=== PATIENT | female | born 1990 | race Two or more races ===

== ENCOUNTER 2024-12-27 08:34 | Outpatient (AMB) | payer BC, SELFPAY ==
--- NOTE | 2024-12-27 09:04 | AMB.GYNCLNOT ---
Vital Signs 12/27/24 09:16 Height 1.63 m Height Method Stated Weight 52.277 kg Weight Measurement Method Standing Scale BMI 19.8 BP 112/76 Blood Pressure Source Automatic Cuff Blood Pressure Location Left Upper Arm Position Sitting Respiration 18 Pulse 81 Pulse Source Monitor Temp 97.6 F Temp Source Temporal Artery Scan Pulse Oximetry (%) 99 Oxygen Delivery Method Room Air Allergies/Home Meds Allergies & Medications Allergies No Known Allergies Allergy (Verified 12/27/24 09:18) Medication Reconciliation No Known Home Medications 12/27/24 [History Confirmed 12/27/24] Intake Visit Data Collection New Patient or Established: New Patient not seen in past 3 years at [facility] (considered New) Reason for Visit:: New OB visit Do You Feel Safe at Home: Yes Authorities Contacted: N/A PCP or OBGYN visit in last 3 months: Yes Last menstrual period: 10/19/24 Pain Present Currently: No Smoking Status Smoking Status: Never smoker 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 1. Little interest or pleasure in doing things: not at all 2. 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 Tobacco History Smoking Status: Never smoker Alcohol History Alcohol Intake: Never Domestic Abuse History Do You Feel Safe at Home: Yes History of Present Illness HPI Narrative The patient is a 34-year-old G1, P0 presents for a new OB appointment. LMP was 10/19/2024. This gives an EDC of 07/26/2025. She states she had [address] Cooper at [facility] and did not like her experience. She is here for her obstetrical care. She used to see Dr. Charles Caruso in [place] for her gynecological care. Patient reports breast tenderness mild nausea no vomiting. No bleeding. This was an unexpected but they are very happy about it Review of Systems Review of Systems Narrative Review of Systems: Mild nausea. Breast tenderness. Patient is tired. Exam General General Appearance: alert, in no apparent distress, comfortable, cooperative, healthy appearing, well developed and well groomed Neck Neck exam: Present normal inspection, full ROM and trachea midline Chest Chest inspection: Present normal inspection and symmetric chest wall rise Resp Respiratory exam: Present normal lung sounds bilaterally Card Cardiovascular exam: Present regular rate, normal rhythm and normal heart sounds Abdominal Abdominal exam: Present soft and normal bowel sounds External exam: Present normal external exam Extremities Extremities exam: Present normal inspection and full ROM Psych Psychiatric exam: Present normal affect and normal mood Skin Skin exam: Present warm, dry, intact and normal color Office Procedures OB Clinic LOC & Office Proc's Nursing/Assessment Patient Status: Initial/New Patient OB Clinic Nursing Assessment: BP Monitoring, Medication Reconciliation and Update PMH in EMR OB Clinic Coordination of Care: Complex Care and Chronic Disease 1-5, Education Complex Pt/Fam, Consent,records obtained, informed consent, Results/Orders obtained and Staff clarify orders Special Needs: Heart tones New Patient Charge New Patient Point Assignment: [id number] New Patient Point Charge: COMMUNITY HEALTH PROGRAM COORDINATOR Level 4 ([id number]) Bedside Ultrasounds US Transvaginal at bedside: Yes Urine HCG Ambulatory Location Ambulatory Dept Location: OB Clinic Urine HCG HCG: Yes Results Urine HCG Urine HCG Positive Last Edit by Ronan Leonard MA on 12/27/24 09:23 Assessment & Plan Diagnosis / Problem List (1) Amenorrhea: (2) : Status: Acute Qualifiers: Weeks of gestation: 10 weeks Qualified Code(s): Z3A.10 - 10 weeks gestation of Assessment and Plan: labs ordered. Recommend vitamins. (3) Primiparous in first trimester: Status: Acute OB Ultrasound Indication Indication: Size, dates, viability OB Ultrasound Ultrasound technique: transvaginal Gestational sac assessment: Presence, location, size, shape: Live intrauterine with crown-rump length of 3.32 cm corresponding to 10 weeks 0 days and an EDC of 07/25/2025
[2024-12-27 09:16] VITALS: BP 112/76; PULSE 81; RESP 18; TEMP 36.4; O2SAT 99; BMI 19.8
== END 2024-12-27 10:23 | disposition home or self-care (01) ==
LOC: HODSOBC 08:34
PROVIDERS: Supervising Provider Obstetrics & Gynecology; Visit Provider Obstetrics & Gynecology
DX: Z34.01 Encounter for supervision of normal first pregnancy, first trimester (principal); Z3A.10 10 weeks gestation of pregnancy
CPT/HCPCS: 76817; 99204; G0463

== ENCOUNTER 2025-01-29 08:48 | Outpatient (AMB) | payer OTHER, MEDICAID, SELFPAY ==
[2025-01-29 08:59] VITALS: BP 114/78; PULSE 102; RESP 17; TEMP 36.7; O2SAT 97; BMI 20.5
--- NOTE | 2025-01-29 08:59 | OBCLNT_ITS ---
Vital Signs 01/29/25 08:59 Height 1.63 m Height Method Stated Weight 54.431 kg Weight Measurement Method Standing Scale BMI 20.5 BP 114/78 Blood Pressure Source Automatic Cuff Blood Pressure Location Right Upper Arm Position Sitting Respiration 17 Pulse 102 H Pulse Source Monitor Temp 98.0 F Temp Source Temporal Artery Scan Pulse Oximetry (%) 97 Oxygen Delivery Method Room Air Allergies/Home Meds Allergies & Medications Allergies No Known Allergies Allergy (Verified 01/29/25 09:00) Medication Reconciliation vits no.126-ferrous fum 28 mg iron-folic acid 800 mcg tablet (Classic ) 1 tab PO .QD #90 tabs 12/29/24 [Rx Confirmed 01/29/25] Intake Visit Data Collection New Patient or Established: Established Patient (seen at [facility] within 3 years) Reason for Visit:: OBC Seen by Clinical Staff ONLY (RN/MA): No Materials Management Manager Required: No Do You Feel Safe at Home: Yes Authorities Contacted: N/A PCP or OBGYN visit in last 3 months: Yes Date of Last PCP or OBGYN visit: 12/27/24 Hx Now: Yes Pain Present Currently: No Pain Scale Used: Mccoy-Burgos/Numerical Pain scale:: 0 Smoking Status Smoking Status: Never smoker Questionnaires Covid-19 Vaccine Questionnaire Has patient been vacinated for Covid-19 Have you been vacinated for Covid-19: No PHQ-9 PHQ-2 Over the last 2 weeks, how often have you been bothered by any of the following problems? 1. 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 Tobacco History Smoking Status: Never smoker Alcohol History Alcohol Intake: Never Domestic Abuse History Do You Feel Safe at Home: Yes CLIENT RENEWAL SPECIALIST: Past Medical History Additional Operations/Hospitalizations (year & reason): LEEP 2019 Dr. 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 History of Present Illness HPI Narrative Patient is a 34-year-old G1, P0 with an LMP of 10/19/2024 and EDC of 07/26/2025 who presents for care. She started her care at [facility]. She states she had her labs done at [facility]. Care OB Visit Log OB Flowsheet Initial Weight: Not Recorded Date -?-?-?-?-?-?-?-?-?-?-?-?- EGA Weight BP Alb Glu CTX Pres Fundal ht FHR Mov Dilation Station Effacement Hx Notes Visit Note 01/29/25 -?-?-?-?-?-?-?-?--?-?-?-?- 14w 5d 54.431 kg 114/78 15 140 No vaginal bleeding no cramping. Patient still nauseous willing to try medication. JANY Calculator Estimated Delivery Date Method Current WG Current Estimate 07/25/25 Ultrasound #1 14w 5d Other Estimates 07/26/25 LMP (Certain) 14w 4d Expected Delivery Route/Plan G1, P0 Specific Issue/Plans LMP 10/19/2024 EDC 07/26/2025 Notes Visit Date: 01/29/25 Last Updated by: Abbey Wu (OB Clinic)MD No labs to review. Patient states NIPT is not covered. Office Procedures OB Clinic LOC & Office Proc's Nursing/Assessment Patient Status: Established Patient OB Clinic Nursing Assessment: Medication Reconciliation, Update PMH in EMR and Vital Signs OB Clinic Coordination of Care: Complex Care and Chronic Disease 1-5, Consent,records obtained, informed consent, Education Simp Pt/Fam and Staff clarify orders Special Needs: Heart tones Established Patient Charge Established Patient Point Assignment: 115 Established Patient Point Charge: EP Level 3 (80-115) Assessment & Plan Diagnosis / Problem List (1) : Status: Acute Qualifiers: Weeks of gestation: 15 weeks Qualified Code(s): Z3A.15 - 15 weeks gestation of Assessment and Plan: Follow-up on labs at [facility]. Order Goyo.
== END 2025-01-29 09:13 | disposition home or self-care (01) ==
LOC: HODSOBC 08:48
PROVIDERS: Supervising Provider Obstetrics & Gynecology; Visit Provider Obstetrics & Gynecology
DX: Z34.02 Encounter for supervision of normal first pregnancy, second trimester (principal); Z3A.14 14 weeks gestation of pregnancy
CPT/HCPCS: 99213; G0463

== ENCOUNTER 2025-03-02 14:45 | Outpatient (AMB) | payer OTHER, SELFPAY ==
--- NOTE | 2025-03-02 14:56 | OBCLNT_ITS ---
Vital Signs 03/02/25 14:57 Height 1.63 m Height Method Stated Weight 56.869 kg Weight Measurement Method Standing Scale BMI 21.4 BP 106/71 Blood Pressure Source Automatic Cuff Blood Pressure Location Right Upper Arm Position Sitting Respiration 17 Pulse 88 Pulse Source Monitor Temp 98.5 F Temp Source Temporal Artery Scan Pulse Oximetry (%) 97 Oxygen Delivery Method Room Air Allergies/Home Meds Allergies & Medications Allergies shrimp Allergy (Severe, Verified 03/02/25 16:18) Anaphylaxis Medication Reconciliation vits no.126-ferrous fum 28 mg iron-folic acid 800 mcg tablet (Classic ) 1 tab PO .QD #90 tabs 12/29/24 [Rx Confirmed 03/02/25] doxylamine 10 mg-pyridoxine (vit B6) 10 mg tablet,delayed release (Diclegis) 1 tab PO BID #30 tabs 01/29/25 [Rx Confirmed 03/02/25] ondansetron 4 mg disintegrating tablet 4 mg PO Q6H PRN nausea and vomiting #60 tabs 01/29/25 [Rx Confirmed 03/02/25] Intake Visit Data Collection New Patient or Established: Established Patient (seen at [facility] within 3 years) Reason for Visit:: OBC Seen by Clinical Staff ONLY (RN/MA): No Senior Mobile Web Developer Required: No Do You Feel Safe at Home: Yes Authorities Contacted: N/A PCP or OBGYN visit in last 3 months: Yes Date of Last PCP or OBGYN visit: 01/29/25 Hx Now: Yes Are you currently on any form of Control: No Pain Present Currently: Yes Pain Scale Used: Mccoy-Burgos/Numerical Pain scale:: 0 Smoking Status Smoking Status: Never smoker Questionnaires Covid-19 Vaccine Questionnaire Has patient been vacinated for Covid-19 Have you been vacinated for Covid-19: No PHQ-9 PHQ-2 Over the last 2 weeks, how often have you been bothered by any of the following problems? 1. Little interest or pleasure in doing things: not at all 2. Feeling down, depressed, or hopeless: not at all Total score: 0 PHQ-9 3. Trouble falling or staying asleep, or sleeping too much: Not at all 4. Feeling tired or having little energy: Not at all 5. Poor appetite or overeating: Not at all 6. Feeling bad about yourself - or that you are a failure or have let yourself or your family down: Not at all 7. Trouble concentrating on things, such as reading the newspaper or watching television: Not at all 8. Moving or speaking so slowly that other people could have noticed? - Or the opposite - being so fidgety or restless that you have been moving around a lot more than usual: not at all 9. Thoughts that you would be better off or of hurting yourself in some way: Not at all Total score: 0 If you checked off any problems, how difficult have these problems made it for you to do your work, take care of things at home, or get along with other people?: not difficult at all Source: Developed by Drs. Narendra Rogers, Kate Chacon, Roge Suarez and colleagues, with an educational janette from [employer]. 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 Tobacco History Smoking Status: Never smoker Second Hand Smoke Exposure: No Alcohol History Alcohol Intake: Never Domestic Abuse History Do You Feel Safe at Home: Yes History of Present Illness HPI Narrative 34 y/o who presents for PN care. One visit at [facility] Care OB Visit Log OB Flowsheet Initial Weight: Not Recorded Date -?-?-?-?-?-?-?-?-?-?-?-?- EGA Weight BP Alb Glu CTX Pres Fundal ht FHR Mov Dilation Station Effacement Hx Notes Visit Note 01/29/25 -?-?-?-?-?-?-?-?-?-?-?-?- 14w 5d 54.431 kg 114/78 15 140 No vaginal bleeding no cramping. Patient still nauseous willing to try medication. 03/02/25 -?-?-?-?-?-?-?-?-?-?-?-?- 19w 2d 56.869 kg 106/71 20 135 active No VB or hog scraper mping. NIPT WNL. Order SS. No labs back JANY Calculator Estimated Delivery Date Method Current WG Current Estimate 07/25/25 Ultrasound #1 21w 6d Other Estimates 07/26/25 LMP (Certain) 21w 5d Expected Delivery Route/Plan G1, P0 Specific Issue/Plans LMP 10/19/2024 EDC 07/26/2025 Notes Visit Date: 03/02/25 Last Updated by: Abbey Wu (OB Clinic)MD Pt doing well. Need all PNC labs on chart as none available. NIPT 46 XX Visit Date: 01/29/25 Last Updated by: Abbey Wu (OB Clinic)MD No labs to review. Patient states NIPT is not covered. Office Procedures OB Clinic LOC & Office Proc's Nursing/Assessment Patient Status: Established Patient OB Clinic Nursing Assessment: Medication Reconciliation, Update PMH in EMR and Vital Signs OB Clinic Coordination of Care: Complex Care and Chronic Disease 1-5, Consent,records obtained, informed consent, Education Simp Pt/Fam and Staff clarify orders Special Needs: Heart tones Established Patient Charge Established Patient Point Assignment: 115 Established Patient Point Charge: EP Level 3 (80-115)
[2025-03-02 14:57] VITALS: BP 106/71; PULSE 88; RESP 17; TEMP 36.9; O2SAT 97; BMI 21.4
== END 2025-03-02 16:12 | disposition home or self-care (01) ==
LOC: HODSOBC 14:45
PROVIDERS: Supervising Provider Obstetrics & Gynecology; Visit Provider Obstetrics & Gynecology
DX: Z34.02 Encounter for supervision of normal first pregnancy, second trimester (principal); Z3A.19 19 weeks gestation of pregnancy; Z91.013 Allergy to seafood
CPT/HCPCS: 99213; G0463

== ENCOUNTER 2025-03-02 16:14 | Emergency (ER) | payer OTHER, SELFPAY ==
[2025-03-02 16:32] VITALS: BP 102/66; PULSE 87; RESP 17; TEMP 37.2; O2SAT 97; BMI 21.4
--- NOTE | 2025-03-02 16:39 | EDNOTE_ITS ---
ED Abdominal Pain RME/HPI General Chief Complaint: Abdominal Pain Stated complaint: PELVIC PAIN 18 WEEKS , CHILLS X1 DAY Time seen by provider: 03/02/25 16:20 Arrival date/time: 03/02/25 16:14 RME / HPI RME / HPI narrative: 34-year-old female patient was brought in for evaluation regarding pelvic discomfort. Patient has been having pelvic discomfort associated with chills, for 1 day. Denies any vaginal bleeding spotting or pelvic pain. Patient was seen by DEALER DEVELOPMENT MANAGER and was referred to us to rule out UTI. According to the patient and family did Doppler ultrasound and showed the baby is fine patient is 1 para 0 Related Data Previous Rx's ?Medication ?Instructions ?Recorded vits no.126-ferrous fum 1 tab PO .QD #90 tabs 12/29/24 28 mg iron-folic acid 800 mcg tablet (Classic ) doxylamine 10 mg-pyridoxine (vit 1 tab PO BID #30 tabs 01/29/25 B6) 10 mg tablet,delayed release (Diclegis) ondansetron 4 mg disintegrating 4 mg PO Q6H PRN nausea and 01/29/25 tablet vomiting #60 tabs cephalexin 500 mg capsule 500 mg PO Q8H 7 days #21 cap s 03/02/25 Allergies Allergy/AdvReac Type Severity Reaction Status Date / Time shrimp Allergy Severe Anaphylaxis Verified 03/02/25 16:18 Review of Systems Review of Systems Narrative Review of Systems: Review of system reviewed and within normal limits except mentioned in HPI ED Exam Narrative Physical exam: VITAL SIGNS: Reviewed. GENERAL APPEARANCE: Alert and interactive, follows commands, no acute distress, HEAD AND FACE: Non-traumatic. ENT: PERRL, pink conjunctivitis, eyelid no trauma, Mucous membrane moist. NECK: Supple, nontender, no nuchal rigidity. CHEST: No tenderness, no crepitus, no paradoxical movement, no retractions. LUNGS: Clear, well ventilated, symmetric, no rales, no wheezing, no ronchi, no stridor, good breath sounds bilaterally. HEART: Regular rate, regular rhythm, no murmur, no gallops. ABDOMEN: Soft, positive bowel sounds, nondistended, no guarding, nontender, no rebound, no masses, RECTAL: Deferred. GENITAL: Deferred. NEUROLOGICAL: Gross motor function intact sensory function intact, Appropriate for age. MUSCULOSKELETAL: low back nontender, full range of motion. EXTREMITIES: Nontender, full range of motion. SKIN: Color pink, dry, no rash, no lacerations, no abrasions, no contusions. LYMPHATICS: Deferred. Course Quality Measures none Orders Category Date Time Status Basic Metabolic Panel Stat Lab 03/02/25 16:56 Completed Beta HCG,Quantitative Stat Lab 03/02/25 16:56 Completed CBC Stat Lab 03/02/25 16:56 Completed Urinalysis Stat Lab 03/02/25 17:47 Completed cephALEXin [Keflex] Med 03/02/25 18:40 Discontinued 500 mg PO X1 ONE Vital Signs Vital signs: Vital Signs Temperature 99.0 F 03/02/25 16:32 Pulse Rate 87 03/02/25 16:32 Respiratory Rate 17 03/02/25 16:32 Blood Pressure 102/66 03/02/25 16:32 Pulse Oximetry (%) 97 03/02/25 16:32 Oxygen Delivery Method Room Air 03/02/25 16:32 Abdominal Pain MDM MDM Narrative MDM Narrative:: 34-year-old female patient was brought in for evaluation regarding pelvic discomfort. Patient has been having pelvic discomfort associated with chills, for 1 day. Denies any vaginal bleeding spotting or pelvic pain. Patient was seen by DEALER DEVELOPMENT MANAGER and was referred to us to rule out UTI. According to the patient and family did Doppler ultrasound and showed the baby is fine .patient is g ravida 1 para 0 Patient's workup is significant for UTI otherwise unremarkable. Results discussed with the patient. Patient received Keflex in the ED. Patient data External records reviewed:: None Clinical information provided by:: patient Social determinants that could affect healthcare access:: none Patient has the following chronic illnesses:: none How is presenting disease/condition affected by chronic disease/condition?: no chronic disease Evaluation data The following diagnostics were reviewed and interpreted by me:: lab results Lab and/or radiology exams considered but not ordered:: none Interpretation Summary: See results [facility] Medications / Prescriptions Medications or Prescriptions considered but not ordered:: none Medication administrations:: Medication Administration History Discontinued Medications Cephalexin HCl (Cephalexin 250 Mg Capsule) 500 mg PO X1 ONE Stop: 03/02/25 18:41 Last Admin: 03/02/25 18:53 Dose: 500 mg Documented By: OA keflex Consultations Consultation(s) initiated? (list below): No Diagnosis Differential diagnosis abdominal pain: other (uti, UTI in , pelvic pain) Most likely diagnosis given after review of the tests above:: uti in Admission Indicated Admission indicated?: not indicated Admission Request Was there a request for admission?: No Disposition Plan Disposition Plan: Discharge Discharge Attestation Discharge Attestation: The patient and all family members were given an opportunity to ask questions and understood the discharge instructions. Discharge instructions specifically effects, indications for sooner follow up or return to the emergency department, and the expected course of current diagnosis. Patient condition: Stable Discharge Plan Plan Patient Disposition: HOME (Self Care) Discharge Disposition comment: Stable Prescriptions/Referrals Prescriptions/Med Rec: New cephalexin 500 mg capsule 500 mg PO Q8H 7 Days Qty: 21 0RF No Action Classic 28 mg iron- 800 mcg tablet 1 tab PO .QD Qty: 90 3RF ondansetron 4 mg tablet,disintegrating 4 mg PO Q6H PRN (Reason: nausea and vomiting) Qty: 60 3RF doxylamine-pyridoxine (vit B6) [Diclegis] 10-10 mg tablet,delayed release (DR/EC) 1 tab PO BID Qty: 30 0RF Referrals: No Primary/Family,Physician [Primary Care Provider] - In 1 week Problem List Clinical Impression: UTI (urinary tract infection) during Patient/Caregiver Discharge Instructions Discharge Activity: activity as tolerated Education Materials: Urinary Tract Infections in Women Additional Instructions: Thank you for the opportunity for serving you today. You are stable for discharged . You are advised to: Follow-up with your DEALER DEVELOPMENT MANAGER next week Return to ED for worsening of symptoms, vaginal bleeding, abnormal vaginal discharge Increase oral fluids Take medication as prescribed Print Language: Citizen Of [place] Stand Alone Forms: Meli Award Info., Patient Portal Info Letter SHIRA/PHIL Supervising Physician SHIRA/PHIL Supervising Physician: MD Ashley
[2025-03-02 17:13] LABS: Basophils # (Auto) 0.1 Thou/mm3 (0.0-0.2); Basophils % (Auto) 1 % (0-2.5); Eosinophils # (Auto) 0.1 Thou/mm3 (0.0-0.5); Eosinophils % (Auto) 1 % (0-10); Hematocrit 32.0 % (36.0-46.0); Hemoglobin 11.0 g/dL (12.0-16.0); Immature Granulocytes Auto 0.26 Thou/mm3 (0.00-0.00); Lymphocytes # (Auto) 1.6 Thou/mm3 (1.0-4.8); Lymphocytes % (Auto) 14 % (10-50); Mean Corpuscular HGB Conc 34.4 g/dl (31.0-37.0); Mean Corpuscular Hemoglobin 31.2 pg (25.0-35.0); Mean Corpuscular Volume 91 fL (80-100); Monocytes # (Auto) 1.2 Thou/mm3 (0.0-0.8); Monocytes % (Auto) 11 % (0-12); Neutrophils # (Auto) 7.9 Thou/mm3 (1.8-7.7); Neutrophils % (Auto) 72 % (37-80); Nucleated Red Blood Cell # 0.00 Thou/mm3 (0.00-0.00); Nucleated Red Blood Cell % 0 /100 WBC (0); Platelet Count 216 Thou/mm3 (140-440); RDW Standard Deviation 40.5 fL (36.4-46.3); Red Blood Count 3.53 Miln/mm3 (4.00-5.20); White Blood Count 11.0 Thou/mm3 (3.6-11.0)
[2025-03-02 17:39] LABS: Anion Gap 11 (7-16); BUN/Creatinine Ratio 10 Ratio (12-20); Blood Urea Nitrogen < 5 mg/dL (9-23); Calcium 9.3 mg/dL (8.3-10.6); Carbon Dioxide 23.1 mMol/L (20.0-31.0); Chloride 104 mMol/L (98-107); Creatinine (Component) 0.5 mg/dL (0.6-1.3); Estimated Creatinine Clearance 138.2 mL/min (>60); Glucose 80 mg/dL (74-106); Osmolality,Calculated 271 (275-295); Potassium 3.7 mMol/L (3.4-5.1); Sodium 138 mMol/L (136-145); eGFR > 60 See Note
[2025-03-02 17:53] LABS: Collection Type, Urine Clean Catch
[2025-03-02 18:14] LABS: Bacteria,Urine 1+; Bilirubin,Urine Negative (Negative); Blood,Urine Negative (Negative); Clarity,Urine Turbid (Clear/Hazy); Color,Urine Lt-Yellow (Lt Yel-Yel); Glucose, Urine Negative (Negative); Ketones,Urine Trace (Negative); Leukocyte Esterase,Urine Positive (Negative); Nitrite,Urine Negative (Negative); PH,Urine 6.0 (5.0-7.0); Protein,Urine Negative (Neg - Trace); RBC,Urine 6 /hpf (0-3); Specific Gravity,Urine 1.012 (1.001-1.035); Squamous Epithelial Cell,Urine 1 /hpf (0-5); Urobilinogen,Urine Negative mg/dL (0.0-1.0); WBC,Urine 5 /hpf (0-5)
[2025-03-02 18:23] LABS: Beta HCG,Quantitative 29201 mIU/mL (<5.0)
== END 2025-03-02 19:00 | disposition home or self-care (01) ==
PROVIDERS: Nurse Practitioner Family; Emergency Provider Family Medicine
DX: O23.42 Unspecified infection of urinary tract in pregnancy, second trimester (principal); Z3A.18 18 weeks gestation of pregnancy
CPT/HCPCS: 36415; 80048; 81001; 84702; 85025; 99283; A9270

== ENCOUNTER 2025-03-26 08:46 | Outpatient (AMB) | payer OTHER, SELFPAY ==
--- NOTE | 2025-03-26 09:13 | AMB.OBVISIT ---
Vital Signs 03/26/25 09:14 Height 1.63 m Height Method Measured Weight 59.024 kg Weight Measurement Method Standing Scale BMI 22.2 BP 99/64 Blood Pressure Source Automatic Cuff Blood Pressure Location Right Upper Arm Position Sitting Respiration 17 Pulse 89 Pulse Source Monitor Temp 98.0 F Temp Source Temporal Artery Scan Pulse Oximetry (%) 97 Oxygen Delivery Method Room Air Allergies/Home Meds Allergies & Medications Allergies shrimp Allergy (Severe, Verified 03/26/25 09:14) Anaphylaxis Medication Reconciliation vits no.126-ferrous fum 28 mg iron-folic acid 800 mcg tablet (Classic ) 1 tab PO .QD #90 tabs 12/29/24 [Rx Confirmed 03/26/25] Intake Visit Data Collection New Patient or Established: Established Patient (seen at [facility] within 3 years) Reason for Visit:: OBC\ER FOLLOW UP Consent obtained for Telemed Visit: No Seen by Clinical Staff ONLY (RN/MA): No College Sports Assistant Required: No Do You Feel Safe at Home: Yes Authorities Contacted: N/A PCP or OBGYN visit in last 3 months: Yes Date of Last PCP or OBGYN visit: 03/02/25 Hx Now: Yes Are you currently on any form of Control: No Pain Present Currently: No Pain Scale Used: Mccoy-Burgos/Numerical Pain scale:: 0 Smoking Status Smoking Status: Never smoker Questionnaires Covid-19 Vaccine Questionnaire Has patient been vacinated for Covid-19 Have you been vacinated for Covid-19: No PHQ-9 PHQ-2 Over the last 2 weeks, how often have you been bothered by any of the following problems? 1. Little interest or pleasure in doing things: not at all PHQ-9 8. Moving or speaking so slowly that other people could have noticed? - Or the opposite - being so fidgety or restless that you have been moving around a lot more than usual: not at all Source: Developed by Drs. Narendra Rogers, Kate Chacon, Roge Suarez and colleagues, with an educational janette from [employer]. 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 Tobacco History Smoking Status: Never smoker Second Hand Smoke Exposure: No Alcohol History Alcohol Intake: Never Domestic Abuse History Do You Feel Safe at Home: Yes History of Present Illness HPI Narrative The patient is a 34 y/o who presents for PNC. Care OB Visit Log OB Flowsheet Initial Weight: Not Recorded Date <del>?</del> EGA Weight BP Alb Glu CTX Pres Fundal ht FHR Mov Dilation Station Effacement Hx Notes Visit Note 01/29/25 <del>?</del> 14w 5d 54.431 kg 114/78 15 140 No vaginal bleeding no cramping. Patient still nauseous willing to try medication. 03/02/25 <del>?</del> 19w 2d 56.869 kg 106/71 20 135 active No VB or cramping. NIPT WNL. Order SS. No labs back 03/26/25 <del>?</del> 22w 5d 59.024 kg 99/64 absent 23 156 active +FM no UCs or VB Ordered US from [facility] Pt states she faints with pain and has passed out in the shower with cramps from her cycles JANY Calculator Estimated Delivery Date Method Current WG Current Estimate 07/25/25 Ultrasound #1 22w 6d Other Estimates 07/26/25 LMP (Certain) 22w 5d Expected Delivery Route/Plan G1, P0 Specific Issue/Plans LMP 10/19/2024 EDC 07/26/2025 Notes Visit Date: 03/26/25 Last Updated by: Abbey Wu (OB Clinic)MD Labs from [facility] 01/01/25: A+/ab screen -/RI/RPR NR/ HIV-/HepBSag-/HgB 11.8 No Urine Cx or GC/Chlamydia NIPT 46 XY Visit Date: 03/02/25 Last Updated by: Abbey Wu (OB Clinic)MD Pt doing well. Need all PNC labs on chart as none available. NIPT 46 XX Visit Date: 01/29/25 Last Updated by: Abbey Wu (OB Clinic)MD No labs to review. Patient states NIPT is not covered. Office Procedures OB Clinic LOC & Office Proc's Nursing/Assessment Patient Status: Established Patient OB Clinic Nursing Assessment: Medication Reconciliation, Update PMH in EMR and Vital Signs OB Clinic Coordination of Care: Complex Care and Chronic Disease 1-5, Consent,records obtained, informed consent, Education Simp Pt/Fam, Ref for ancillary service and Results/Orders obtained Special Needs: Heart tones Established Patient Charge Established Patient Point Assignment: 140 Established Patient Point Charge: EP Level 4 (120-155) Assessment & Plan Diagnosis / Problem List (1) : Status: Acute Qualifiers: Weeks of gestation: 22 weeks Qualified Code(s): Z3A.22 - 22 weeks gestation of
[2025-03-26 09:14] VITALS: BP 99/64; PULSE 89; RESP 17; TEMP 36.7; O2SAT 97; BMI 22.2
== END 2025-03-26 10:06 | disposition home or self-care (01) ==
LOC: HODSOBC 08:46
PROVIDERS: Supervising Provider Obstetrics & Gynecology; Visit Provider Obstetrics & Gynecology
DX: Z34.02 Encounter for supervision of normal first pregnancy, second trimester (principal); Z3A.22 22 weeks gestation of pregnancy; Z91.013 Allergy to seafood
CPT/HCPCS: 99214; G0463

== ENCOUNTER 2025-04-11 08:48 | Outpatient (AMB) | payer OTHER, SELFPAY ==
[2025-04-11 08:56] VITALS: BP 102/67; PULSE 84; RESP 16; TEMP 36.8; O2SAT 98; BMI 23.0
--- NOTE | 2025-04-11 08:56 | OBCLNT_ITS ---
Vital Signs 04/11/25 08:56 Height 1.63 m Height Method Stated Weight 61.235 kg Weight Measurement Method Standing Scale BMI 23.0 BP 102/67 Blood Pressure Source Automatic Cuff Blood Pressure Location Left Upper Arm Position Sitting Respiration 16 Pulse 84 Pulse Source Monitor Temp 98.2 F Temp Source Oral Pulse Oximetry (%) 98 Oxygen Delivery Method Room Air Allergies/Home Meds Allergies & Medications Allergies shrimp Allergy (Severe, Verified 04/11/25 08:57) Anaphylaxis Medication Reconciliation vits no.126-ferrous fum 28 mg iron-folic acid 800 mcg tablet (Classic ) 1 tab PO .QD #90 tabs 12/29/24 [Rx Confirmed 04/11/25] Intake Visit Data Collection New Patient or Established: Established Patient (seen at [facility] within 3 years) Reason for Visit:: CARE Seen by Clinical Staff ONLY (RN/MA): No Senior Architectural Designer Required: No Do You Feel Safe at Home: Yes Authorities Contacted: N/A PCP or OBGYN visit in last 3 months: Yes Hx Now: Yes Are you currently on any form of Control: No Pain Present Currently: No Pain Scale Used: Mccoy-Burgos/Numerical Pain scale:: 0 Smoking Status Smoking Status: Never smoker Questionnaires Covid-19 Vaccine Questionnaire Has patient been vacinated for Covid-19 Have you been vacinated for Covid-19: Yes PHQ-9 PHQ-2 Over the last 2 weeks, how often have you been bothered by any of the following problems? 1. Little interest or pleasure in doing things: not at all 2. Feeling down, depressed, or hopeless: not at all Total score: 0 PHQ-9 3. Trouble falling or staying asleep, or sleeping too much: Not at all 4. Feeling tired or having little energy: Not at all 5. Poor appetite or overeating: Not at all 6. Feeling bad about yourself - or that you are a failure or have let yourself or your family down: Not at all 7. Trouble concentrating on things, such as reading the newspaper or watching television: Not at all 8. Moving or speaking so slowly that other people could have noticed? - Or the opposite - being so fidgety or restless that you have been moving around a lot more than usual: not at all 9. Thoughts that you would be better off or of hurting yourself in some way: Not at all Total score: 0 Source: Developed by Drs. Narendra Rogers, Kate Chacon, Roge Suarez and colleagues, with an educational janette from [employer]. 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 Tobacco History Smoking Status: Never smoker Second Hand Smoke Exposure: No Alcohol History Alcohol Intake: Never Domestic Abuse History Do You Feel Safe at Home: Yes Care OB Visit Log OB Flowsheet Initial Weight: Not Recorded Date -?-?-?-?-?-?-?-?-?-?-?-?- EGA Weight BP Alb Glu CTX Pres Fundal ht FHR Mov Dilation Station Effacement Hx Notes Visit Note 01/29/25 -?-?-?-?-?-?-?-?-?-?-?-?- 14w 5d 54.431 kg 114/78 15 140 No vaginal bleeding no cramping. Patient still nauseous willing to try medication. 03/02/25 -?-?-?-?-?-?-?-?-?-?-?-?- 19w 2d 56.869 kg 106/71 20 135 active No VB or hog scraper mping. NIPT WNL. Order SS. No labs back 03/26/25 -?-?-?-?-?-?-?-?-?-?-?-?- 22w 5d 59.024 kg 99/64 absent 23 156 act james +FM no UCs or VB Ordered US from [facility] Pt states she faints with pain and has passed out in the shower with cramps from her cycles 04/11/25 -?-?-?-?-?-?-?-?-?-?-?-?- 25w 0d 61.235 kg 102/67 absent 26 154 active +FM No UCs or VB Multiple complaints and concerns addressed JANY Calculator Estimated Delivery Date Method Current WG Current Estimate 07/25/25 Ultrasound #1 25w 4d Other Estimates 07/26/25 LMP (Certain) 25w 3d Expected Delivery Route/Plan G1, P0 Hx LEEP in 2019 (Dr Caruso) ANXIETY/DEPRESSION 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 A spider or mosquito bite on one lower leg, a cold sore on her lip. She is very anxious and again discussed that sometimes she would faint from menstrual cramps in the past. Her BP is 102/67 but she said her family has taken it at home and she has a picture on her phone of a BP around 98/56. No CHU, No SOB or chest pain. 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 Reassurance given about low BP and told it is because she is young and healthy and that BP often drops a little in the second trimester. Offered acyclovir for cold sore and reminded pt not to touch the area a lot as it can spread to other areas. If pt has vaginal herpes, she needs to call immediately and she will be treated and started on suppression at 36 weeks. I suggested no one take her BP unless she does not feel well. I told her low sodium might help her swelling but will not increase her BP. Visit Date: 03/26/25 Last Updated by: Abbey Wu ([facility] Clinic)MD Labs from [facility] 01/01/25: A+/ab screen -/RI/RPR NR/ HIV-/HepBSag-/HgB 11.8 No Urine Cx or GC/Chlamydia NIPT 46 XY Visit Date: 03/02/25 Last Updated by: Abbey Wu ([facility])MD Pt doing well. Need all PNC labs on chart as none available. NIPT 46 XX Visit Date: 01/29/25 Last Updated by: Abbey Wu ([facility] Clinic)MD No labs to review. Patient states NIPT is not covered. Office Procedures OB Clinic LOC & Office Proc's Nursing/Assessment Patient Status: Established Patient OB Clinic Nursing Assessment: Medication Reconciliation, Update PMH in EMR and Vital Signs OB Clinic Coordination of Care: Complex Care and Chronic Disease 1-5, Consent,records obtained, informed consent, Education Simp Pt/Fam, Lab and Imaging orders, Results/Orders obtained and Staff clarify orders Special Needs: Heart tones Established Patient Charge Established Patient Point Assignment: 135 Established Patient Point Charge: EP Level 4 (120-155)
== END 2025-04-11 10:17 | disposition home or self-care (01) ==
LOC: HODSOBC 08:48
PROVIDERS: Supervising Provider Obstetrics & Gynecology; Visit Provider Obstetrics & Gynecology
DX: O09.892 Supervision of other high risk pregnancies, second trimester (principal); O98.512 Other viral diseases complicating pregnancy, second trimester; B00.1 Herpesviral vesicular dermatitis; O99.891 Other specified diseases and conditions complicating pregnancy; R22.43 Localized swelling, mass and lump, lower limb, bilateral; R03.1 Nonspecific low blood-pressure reading; R22.33 Localized swelling, mass and lump, upper limb, bilateral; O99.342 Other mental disorders complicating pregnancy, second trimester; F41.9 Anxiety disorder, unspecified; Z3A.25 25 weeks gestation of pregnancy; Z91.013 Allergy to seafood
CPT/HCPCS: 99214; G0463

== ENCOUNTER 2025-05-07 08:38 | Outpatient (AMB) | payer OTHER, SELFPAY ==
[2025-05-07 08:48] VITALS: BP 100/64; PULSE 87; RESP 19; TEMP 36.7; O2SAT 98; BMI 23.6
--- NOTE | 2025-05-07 08:48 | OBCLNT_ITS ---
Vital Signs 05/07/25 08:48 Height 1.63 m Height Method Measured Weight 62.709 kg Weight Measurement Method Standing Scale BMI 23.6 BP 100/64 Blood Pressure Source Automatic Cuff Blood Pressure Location Right Upper Arm Position Sitting Respiration 19 Pulse 87 Pulse Source Monitor Temp 98.0 F Temp Source Temporal Artery Scan Pulse Oximetry (%) 98 Oxygen Delivery Method Room Air Allergies/Home Meds Allergies & Medications Allergies shrimp Allergy (Severe, Verified 04/11/25 08:57) Anaphylaxis Intake Visit Data Collection New Patient or Established: Established Patient (seen at [facility] within 3 years) Reason for Visit:: OBC FOLLOW UP Snorkelling Instructor Required: No Do You Feel Safe at Home: Yes Authorities Contacted: N/A PCP or OBGYN visit in last 3 months: Yes Date of Last PCP or OBGYN visit: 04/11/25 Hx Now: Yes Pain Present Currently: No Smoking Status Smoking Status: Never smoker Questionnaires PHQ-9 PHQ-2 Over the last 2 weeks, how often have you been bothered by any of the following problems? 1. Little interest or pleasure in doing things: not at all PHQ-9 8. Moving or speaking so slowly that other people could have noticed? - Or the opposite - being so fidgety or restless that you have been moving around a lot more than usual: not at all Source: Developed by Drs. Narendra Rogers, Kate Chacon, Roge Suarez and colleagues, with an educational janette from [employer]. 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 FOB is present t [facility]. Tobacco History Smoking Status: Never smoker Second Hand Smoke Exposure: No Alcohol History Alcohol Intake: Never Domestic Abuse History Do You Feel Safe at Home: Yes Care OB Visit Log OB Flowsheet Initial Weight: Not Recorded Date -?-?-?-?-?-?-?-?-?-?-?-?- EGA Weight BP Alb Glu CTX Pres Fundal ht FHR Mov Dilation Station Effac ement Hx Notes Visit Note 01/29/25 -?-?-?-?-?-?-?-?-?-?-?-?- 14w 5d 54.431 kg 114/78 15 140 No vaginal bleeding no cramping. Patient still nauseous willing to try medication. 03/02/25 -?-?-?-?-?-?-?-?-?-?-?-?- 19w 2d 56.869 kg 106/71 20 135 active No VB or scrap metal burner mping. NIPT WNL. Order SS. No labs back 03/26/25 -?-?-?-?-?-?-?-?-?-?-?-?- 22w 5d 59.024 kg 99/64 absent 23 156 act james +FM no UCs or VB Ordered US from [facility] Pt states she faints with pain and has passed out in the shower with cramps from her cycles 04/11/25 -?-?-?-?-?-?-?-?-?-?-?-?- w 0d 61.235 kg 102/67 absent 26 154 active +FM No UCs or VB Multiple complaints and concerns addressed 05/07/25 -?-?-?-?-?-?-?-?-?-?-?-?- 28w 5d 62.709 kg 100/64 absent 29 156 ac tive Good movement no contractions no vaginal bleeding Order glucose challenge test. Order CBC and RPR. 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 Suspect varicosity Visit Date: 04/11/25 Last Updated by: Abbey Wu ([facility])MD Pt presents with FOB with multiple complaints: swelling in her feet and hands, early carpal tunnel-like pain on and off in the mornings. A spider or mosquito bite on one lower leg, a cold sore on her lip. She is very anxious and again discussed that sometimes she would faint from menstrual cramps in the past. Her BP is 102/67 but she said her family has taken it at home and she has a picture on her phone of a BP around 98/56. No CHU, No SOB or chest pain. 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 Reassurance given about low BP and told it is because she is young and healthy and that BP often drops a little in the second trimester. Offered acyclovir for cold sore and reminded pt not to touch the area a lot as it can spread to other areas. If pt has vaginal herpes, she needs to call immediately and she will be treated and started on suppression at 36 weeks. I suggested no one take her BP unless she does not feel well. I told her low sodium might help her swelling but will not increase her BP. Visit Date: 03/26/25 Last Updated by: Abbey Wu ([facility])MD Labs from [facility] 01/01/25: A+/ab screen -/RI/RPR NR/ HIV-/HepBSag-/HgB 11.8 No Urine Cx or GC/Chlamydia NIPT 46 XY Visit Date: 03/02/25 Last Updated by: Abbey Wu ([facility])MD Pt doing well. Need all PNC labs on chart as none available. NIPT 46 XX Visit Date: 01/29/25 Last Updated by: Abbey Wu ([facility])MD No labs to review. Patient states NIPT is not covered. Office Procedures OB Clinic LOC & Office Proc's Nursing/Assessment Patient Status: Established Patient OB Clinic Nursing Assessment: Medication Reconciliation, Update PMH in EMR and Vital Signs OB Clinic Coordination of Care: Complex Care and Chronic Disease 1-5, Consent,records obtained, informed consent, Lab and Imaging orders, Results/Orders obtained and Staff clarify orders Special Needs: Heart tones Established Patient Charge Established Patient Point Assignment: 120 Established Patient Point Charge: EP Level 4 (120-155)
== END 2025-05-07 09:41 | disposition home or self-care (01) ==
LOC: HODSOBC 08:38
PROVIDERS: PCP Obstetrics & Gynecology; Referring Provider Obstetrics & Gynecology; Supervising Provider Obstetrics & Gynecology; Visit Provider Obstetrics & Gynecology
DX: O09.893 Supervision of other high risk pregnancies, third trimester (principal); O99.891 Other specified diseases and conditions complicating pregnancy; R22.43 Localized swelling, mass and lump, lower limb, bilateral; Z3A.28 28 weeks gestation of pregnancy
CPT/HCPCS: 99214; G0463

== ENCOUNTER → 2025-05-14 | Outpatient (CLI) | payer OTHER, SELFPAY ==
[2025-05-14 09:16] LABS: Basophils # (Auto) 0.1 Thou/mm3 (0.0-0.2); Basophils % (Auto) 1 % (0-2.5); Eosinophils # (Auto) 0.1 Thou/mm3 (0.0-0.5); Eosinophils % (Auto) 1 % (0-10); Hematocrit 31.8 % (36.0-46.0); Hemoglobin 10.5 g/dL (12.0-16.0); Immature Granulocytes Auto 0.53 Thou/mm3 (0.00-0.00); Lymphocytes # (Auto) 1.2 Thou/mm3 (1.0-4.8); Lymphocytes % (Auto) 13 % (10-50); Mean Corpuscular HGB Conc 33.0 g/dl (31.0-37.0); Mean Corpuscular Hemoglobin 30.3 pg (25.0-35.0); Mean Corpuscular Volume 92 fL (80-100); Monocytes # (Auto) 0.7 Thou/mm3 (0.0-0.8); Monocytes % (Auto) 8 % (0-12); Neutrophils # (Auto) 6.4 Thou/mm3 (1.8-7.7); Neutrophils % (Auto) 72 % (37-80); Nucleated Red Blood Cell # 0.00 Thou/mm3 (0.00-0.00); Nucleated Red Blood Cell % 0 /100 WBC (0); Platelet Count 201 Thou/mm3 (140-440); RDW Standard Deviation 43.1 fL (36.4-46.3); Red Blood Count 3.46 Miln/mm3 (4.00-5.20); White Blood Count 8.9 Thou/mm3 (3.6-11.0)
[2025-05-14 09:36] LABS: Glucose,1 Hour PP 50gm Dose 189 mg/dL (80-140)
[2025-05-14 09:52] LABS: Syphilis Nonreactive (Nonreactive)
== END | disposition home or self-care (01) ==
PROVIDERS: Referring Provider Obstetrics & Gynecology; Visit Provider Obstetrics & Gynecology
DX: Z3A.22 22 weeks gestation of pregnancy (principal); Z3A.28 28 weeks gestation of pregnancy
CPT/HCPCS: 36415; 82950; 82951; 85025; 86780

== ENCOUNTER 2025-05-21 08:57 | Outpatient (AMB) | payer OTHER, SELFPAY ==
[2025-05-21 09:04] VITALS: BP 108/69; PULSE 89; RESP 16; TEMP 35.9; O2SAT 98; BMI 23.6
--- NOTE | 2025-05-21 09:04 | OBCLNT_ITS ---
Vital Signs 05/21/25 09:04 Height 1.63 m Height Method Stated Weight 62.823 kg Weight Measurement Method Standing Scale BMI 23.6 BP 108/69 Blood Pressure Source Automatic Cuff Blood Pressure Location Left Upper Arm Position Sitting Respiration 16 Pulse 89 Pulse Source Monitor Temp 96.7 F L Temp Source Oral Pulse Oximetry (%) 98 Oxygen Delivery Method Room Air Allergies/Home Meds Allergies & Medications Allergies shrimp Allergy (Severe, Verified 05/21/25 09:06) Anaphylaxis Medication Reconciliation acyclovir 400 mg tablet 400 mg PO TID #21 tabs 04/15/25 [Rx Confirmed 05/21/25] vits no.126-ferrous fum 28 mg iron-folic acid 800 mcg tablet (Classic ) 1 tab PO .QD #90 tabs 04/17/25 [Rx Confirmed 05/21/25] Intake Visit Data Collection New Patient or Established: Established Patient (seen at [facility] within 3 years) Reason for Visit:: CARE Seen by Clinical Staff ONLY (RN/MA): No Pilot Plant Research Technician Required: No Do You Feel Safe at Home: Yes Authorities Contacted: N/A PCP or OBGYN visit in last 3 months: Yes Hx Now: Yes Are you currently on any form of Control: No Pain Present Currently: No Pain Scale Used: Mccoy-Burgos/Numerical Pain scale:: 0 Smoking Status Smoking Status: Never smoker Questionnaires Covid-19 Vaccine Questionnaire Has patient been vacinated for Covid-19 Have you been vacinated for Covid-19: No PHQ-9 PHQ-2 Over the last 2 weeks, how often have you been bothered by any of the following problems? 1. Little interest or pleasure in doing things: not at all 2. Feeling down, depressed, or hopeless: not at all Total score: 0 PHQ-9 3. Trouble falling or staying asleep, or sleeping too much: Not at all 4. Feeling tired or having little energy: Not at all 5. Poor appetite or overeating: Not at all 6. Feeling bad about yourself - or that you are a failure or have let yourself or your family down: Not at all 8. Moving or speaking so slowly that other people could have noticed? - Or the opposite - being so fidgety or restless that you have been moving around a lot more than usual: not at all 9. Thoughts that you would be better off or of hurting yourself in some way: Not at all Source: Developed by Drs. Narendra Rogers, Kate Chcaon, Roge Suarez and colleagues, with an educational janette from [employer]. 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 Tobacco History Smoking Status: Never smoker Second Hand Smoke Exposure: No Alcohol History Alcohol Intake: Never Domestic Abuse History Do You Feel Safe at Home: Yes Care OB Visit Log OB Flowsheet Initial Weight: Not Recorded Date -?-?-?-?-?-?-?-?-?-?-?-?- EGA Weight BP Alb Glu CTX Pres Fundal ht FHR Mov Dilation Station Effacement Hx Notes Visit Note 01/29/25 -?-?-?-?-?-?-?-?-?-?-?-?- 14w 5d 54.431 kg 114/78 15 140 No vaginal bleeding no cramping. Patient still nauseous willing to try medication. 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 NIPT WNL. Order SS. No labs back 03/26/25 -?-?-?-?-?-?-?-?-?-?-?-?- 22w 5d 59.024 kg 99/64 absent 23 156 act james +FM no UCs or VB Ordered [facility] Pt states she faints with pain and has passed out in the shower with cramps from her cycles 04/11/25 -?-?-?-?-?-?-?-?-?-?-?-?- 25w 0d 61.235 kg 102/67 absent 26 154 active +FM No UCs or VB Multiple complaints and concerns addressed 05/07/25 -?-?-?-?-?-?-?-?-?-?-?-?- 28w 5d 62.709 kg 100/64 absent 29 156 ac tive Good movement no contractions no vaginal bleeding Order glucose challenge test. Order CBC and RPR. 05/21/25 -?-?-?-?-?-?-?-?-?-?-?-?- 30w 5d 62.823 kg 108/69 absent 32 145 ac tive Good movement no contractions no loss of fluids F cindy 1 hour glucose. 189. 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 Requesting off work in 1 month. Patient will stop work June 15. Discussed labor in depth with the patient and her . She does desire trial of labor and not a primary scheduled C- section. Patient states she passes out with pain I recommend an early epidural. She does have a history of a LEEP we might have to stretch her if cervical scarring is present. Visit Date: 05/07/25 Last Updated by: Abbey Wu ([facility])MD Left leg more swollen than the right. Suspect varicosity Visit Date: 04/11/25 Last Updated by: Abbey Wu ([facility])MD Pt presents with FOB with multiple complaints: swelling in her feet and hands, early carpal tunnel-like pain on and off in the mornings. A spider or mosquito bite on one lower leg, a cold sore on her lip. She is very anxious and again discussed that sometimes she would faint from menstrual cramps in the past. Her BP is 102/67 but she said her family has taken it at home and she has a picture on her phone of a BP around 98/56. No CHU, No SOB or chest pain. 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 Reassurance given about low BP and told it is because she is young and healthy and that BP often drops a little in the second trimester. Offered acyclovir for cold sore and reminded pt not to touch the area a lot as it can spread to other areas. If pt has vaginal herpes, she needs to call immediately and she will be treated and started on suppression at 36 weeks. I suggested no one take her BP unless she does not feel well. I told her low sodium might help her swelling but will not increase her BP. Visit Date: 03/26/25 Last Updated by: Abbey Wu ([facility])MD Labs from [facility] 01/01/25: A+/ab screen -/RI/RPR NR/ HIV-/HepBSag-/HgB 11.8 No Urine Cx or GC/Chlamydia NIPT 46 XY Visit Date: 03/02/25 Last Updated by: Abbey Wu ([facility])MD Pt doing well. Need all PNC labs on chart as none available. NIPT 46 XX Visit Date: 01/29/25 Last Updated by: Abbey Wu ([facility])MD No labs to review. Patient states NIPT is not covered. Office Procedures OBC Clinic LOC & Office Proc's Nursing/Assessment Patient Status: Established Patient OB Clinic Nursing Assessment: Medication Reconciliation, Update PMH in EMR and Vital Signs OB Clinic Coordination of Care: Complex Care and Chronic Disease 1-5, Consent,records obtained, informed consent, Education Simp Pt/Fam, Lab and Imaging orders, Results/Orders obtained and Staff clarify orders Special Needs: Heart tones Established Patient Charge Established Patient Point Assignment: 135 Established Patient Point Charge: EP Level 4 (120-155) Assessment & Plan Diagnosis / Problem List (1) : Status: Acute Qualifiers: Weeks of gestation: 32 weeks Qualified Code(s): Z3A.32 - 32 weeks gestation of
== END 2025-05-21 09:49 | disposition home or self-care (01) ==
LOC: HODSOBC 08:57
PROVIDERS: Supervising Provider Obstetrics & Gynecology; Visit Provider Obstetrics & Gynecology
DX: Z34.03 Encounter for supervision of normal first pregnancy, third trimester (principal); Z3A.30 30 weeks gestation of pregnancy; Z91.013 Allergy to seafood
CPT/HCPCS: 99214; G0463

== ENCOUNTER → 2025-05-28 | Outpatient (CLI) | payer OTHER, SELFPAY ==
[2025-05-28 08:45] LABS: Glucose,Fasting Gestational 89 mg/dL (70-120)
[2025-05-28 10:09] LABS: Glucose 1 Hour, Gest 187 mg/dL (50-190)
[2025-05-28 10:42] LABS: Glucose 2 Hour,Gest 156 mg/dL (50-165)
[2025-05-28 11:41] LABS: Glucose 3 Hour, Gest 121 mg/dL (50-145)
[2025-05-28 12:33] LABS: Chlamydia trachomatis PCR Negative (Not Detect); Neisseria Gonorrhoeae DNA PCR Negative (Not Detect); Trichomonas Negative (Negative)
== END | disposition home or self-care (01) ==
LOC: COPL 07:09
PROVIDERS: PCP Nurse Practitioner Family; Referring Provider Obstetrics & Gynecology; Visit Provider Obstetrics & Gynecology
DX: Z34.92 Encounter for supervision of normal pregnancy, unspecified, second trimester (principal); Z3A.32 32 weeks gestation of pregnancy
CPT/HCPCS: 36415; 82951; 82952; 87086; 87491; 87591; 87661

== ENCOUNTER 2025-06-07 08:30 | Outpatient (AMB) | payer OTHER, SELFPAY ==
[2025-06-07 08:50] VITALS: BP 102/68; PULSE 85; RESP 16; TEMP 36.6; O2SAT 97; BMI 24.3
--- NOTE | 2025-06-07 08:50 | OBCLNT_ITS ---
Vital Signs 06/07/25 08:50 Height 1.63 m Height Method Stated Weight 64.58 kg Weight Measurement Method Standing Scale BMI 24.3 BP 102/68 Blood Pressure Source Automatic Cuff Blood Pressure Location Left Upper Arm Position Sitting Respiration 16 Pulse 85 Pulse Source Monitor Temp 97.9 F Temp Source Oral Pulse Oximetry (%) 97 Oxygen Delivery Method Room Air Allergies/Home Meds Allergies & Medications Allergies shrimp Allergy (Severe, Verified 06/07/25 08:50) Anaphylaxis Medication Reconciliation acyclovir 400 mg tablet 400 mg PO TID #21 tabs 04/15/25 [Rx Confirmed 06/07/25] vits no.126-ferrous fum 28 mg iron-folic acid 800 mcg tablet (Classic ) 1 tab PO .QD #90 tabs 04/17/25 [Rx Confirmed 06/07/25] blood sugar diagnostic (Blood Glucose Test strips) #50 ea 06/07/25 [Rx] blood-glucose meter #1 ea 06/07/25 [Rx] lancets #100 ea 06/07/25 [Rx] Intake Visit Data Collection New Patient or Established: Established Patient (seen at [facility] within 3 years) Reason for Visit:: CARE Seen by Clinical Staff ONLY (RN/MA): No Fire Equipment Inspector Helper Required: No Do You Feel Safe at Home: Yes Authorities Contacted: N/A PCP or OBGYN visit in last 3 months: Yes Hx Now: Yes Are you currently on any form of Control: No Pain Present Currently: No Pain Scale Used: Mccoy-Burgos/Numerical Pain scale:: 0 Smoking Status Smoking Status: Never smoker Immunizations Flu Vaccine in the Last 12 Months: No Questionnaires Covid-19 Vaccine Questionnaire Has patient been vacinated for Covid-19 Have you been vacinated for Covid-19: No PHQ-9 PHQ-2 Over the last 2 weeks, how often have you been bothered by any of the following problems? 1. Little interest or pleasure in doing things: not at all 2. Feeling down, depressed, or hopeless: not at all Total score: 0 PHQ-9 3. Trouble falling or staying asleep, or sleeping too much: Not at all 4. Feeling tired or having little energy: Not at all 5. Poor appetite or overeating: Not at all 6. Feeling bad about yourself - or that you are a failure or have let yourself or your family down: Not at all 7. Trouble concentrating on things, such as reading the newspaper or watching television: Not at all 8. Moving or speaking so slowly that other people could have noticed? - Or the opposite - being so fidgety or restless that you have been moving around a lot more than usual: not at all 9. Thoughts that you would be better off or of hurting yourself in some way: Not at all Total score: 0 Source: Developed by Drs. Narendra Rogers, Kate Chacon, Roge Suarez and colleagues, with an educational janette from [employer] (acquired by [employer] in 2014). 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 Tobacco History Smoking Status: Never smoker Second Hand Smoke Exposure: No Alcohol History Alcohol Intake: Never Domestic Abuse History Do You Feel Safe at Home: Yes Care OB Visit Log OB Flowsheet Initial Weight: Not Recorded Date -?-?-?-?-?-?-?-?-?-?-?-?- EGA Weight BP Alb Glu CTX Pres Fundal ht FHR Mov Dilation Station Effacement Hx Notes Visit Note 01/29/25 -?-?-?-?-?-?-?-?-?-?-?-?- 14w 5d 54.431 kg 114/78 15 140 No vaginal bleeding no cramping. Patient still nauseous willing to try medication. 03/02/25 -?-?-?-?-?-?-?-?-?-?-?-?- 19w 2d 56.869 kg 106/71 20 135 active No VB or aircraft load controller mping. NIPT WNL. Order SS. No labs back 03/26/25 -?-?-?-?-?-?-?-?-?-?-?-?- 22w 5d 59.024 kg 99/64 absent 23 156 act james +FM no UCs or VB Ordered US from [facility] Pt states she faints with pain and has passed out in the shower with cramps from her cycles 04/11/25 -?-?-?-?-?-?-?-?-?-?-?-?- 25w 0d 61.235 kg 102/67 absent 26 154 active +FM No UCs or VB Multiple complaints and concerns addressed 05/07/25 -?-?-?-?-?-?-?-?-?-?-?-?- 28w 5d 62.709 kg 100/64 absent 29 156 ac tive Good movement no contractions no vaginal bleeding Order glucose challenge test. Order CBC and RPR. 05/21/25 -?-?-?-?-?-?-?-?-?-?-?-?- 30w 5d 62.823 kg 108/69 absent 32 145 ac tive Good movement no contractions no loss of fluids F cindy 1 hour glucose. 189. Order 3-hour glucose 06/07/25 -?-?-?-?-?-?-?-?-?--?-?-?- 33w 1d 64.58 kg 102/68 absent cephalic 33 145 active Good movement. Denies contractions. Denies leaking or bleeding. Patient has questions about labor and . Abnormal 3- hour GTT. I ordered glucometer, lancets and test strips. Discussed GDM diet with patient. I discussed how to log sugars and parameters. Kick count twice a day. Schedule NST weekly as urgent. Patient has a follow-up ultrasound at [facility] this week. 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 GC/CT-, RPR::NR, rub imm, hbsag-,hc-,hiv-, A+,ABS- Visit Date: 05/21/25 Last Updated by: Abbey Wu (OB Clinic)MD Patient with back pain suspected sciatic. Requesting off work in 1 month. Patient will stop work June 15. Discussed labor in depth with the patient and her . She does desire trial of labor and not a primary scheduled C- section. Patient states she passes out with pain I recommend an early epidur al. She does have a history of a LEEP we might have to stretch her if cervical scarring is present. Visit Date: 05/07/25 Last Updated by: Abbey Wu (OB Clinic)MD Left leg more swollen than the right. Suspect varicosity Visit Date: 04/11/25 Last Updated by: Abbey Wu ([facility] Clinic)MD Pt presents with FOB with multiple complaints: swelling in her feet and hands, early carpal tunnel-like pain on and off in the mornings. A spider or mosquito bite on one lower leg, a cold sore on her lip. She is very anxious and again discussed that sometimes she would faint from menstrual cramps in the past. Her BP is 102/67 but she said her family has taken it at home and she has a picture on her phone of a BP around 98/56. No CHU, No SOB or chest pain. 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 Reassurance given about low BP and told it is because she is young and healthy and that BP often drops a little in the second trimester. Offered acyclovir for cold sore and reminded pt not to touch the area a lot as it can spread to other areas. If pt has vaginal herpes, she needs to call immediately and she will be treated and started on suppression at 36 weeks. I suggested no one take her BP unless she does not feel well. I told her low sodium might help her swelling but will not increase her BP. Visit Date: 03/26/25 Last Updated by: Abbey Wu ([facility])MD Labs from [facility] 01/01/25: A+/ab screen -/RI/RPR NR/ HIV-/HepBSag-/HgB 11.8 No Urine Cx or GC/Chlamydia NIPT 46 XY Visit Date: 03/02/25 Last Updated by: Abbey Wu ([facility])MD Pt doing well. Need all PNC labs on chart as none available. NIPT 46 XX Visit Date: 01/29/25 Last Updated by: Abbey Wu (OB Clinic)MD No labs to review. Patient states NIPT is not covered. Office Procedures OBC Clinic LOC & Office Proc's Nursing/Assessment Patient Status: Established Patient OB Clinic Nursing Assessment: Medication Reconciliation, Update PMH in EMR and Vital Signs OB Clinic Coordination of Care: Complex Care and Chronic Disease 1-5, Consent,records obtained, informed consent, Education Simp Pt/Fam, 1 Ins Authorization, Lab and Imaging orders, Results/Orders obtained and Staff clarify orders Special Needs: Heart tones Established Patient Charge Established Patient Point Assignment: 150 Established Patient Point Charge: EP Level 4 (120-155) Assessment & Plan Diagnosis / Problem List (1) Encounter for supervision of high risk in third trimester, antepartum: Status: Acute (2) Diet controlled gestational diabetes mellitus (GDM) in third trimester: Status: Acute Plan Return in 2 weeks. Order glucometer, lancets and test strips. Reviewed discussed testing 4 times a day with parameters. Reviewed GDM diet. Walk 40 minutes a day. Start NSTs weekly. Kick count twice a day. Additional Plan Follow Up: 2 Weeks (obc)
== END 2025-06-07 09:23 | disposition home or self-care (01) ==
LOC: HODSOBC 08:30
PROVIDERS: Supervising Provider Advanced Practice Midwife; Visit Provider Advanced Practice Midwife
DX: O09.893 Supervision of other high risk pregnancies, third trimester (principal); O24.410 Gestational diabetes mellitus in pregnancy, diet controlled; Z3A.33 33 weeks gestation of pregnancy; Z91.013 Allergy to seafood
CPT/HCPCS: 99214; G0463

== ENCOUNTER → 2025-06-15 | Outpatient (CLI) | payer OTHER, SELFPAY ==
--- NOTE | 2025-06-15 11:30 | XR_ITS ---
Examination: Complete OB ultrasound greater than 14 weeks Date and time of exam: June 15, 2025, 11 3 8 hours INDICATIONS: Supervision of otherwise normal third trimester Findings: Viable intrauterine single fetus with single amniotic sac presentation cephalic Cardiac motion 145 bpm Placenta fundal grade 1 Medical cord insertion seen Amniotic fluid index 15.9 cm Cervix 4.9 cm Ovaries obscured by bowel gas. Composite estimated gestational age based on BPD, head circumference, abdominal circumference, femur length is 36 weeks 1 day Estimated weight 2766 g. Survey of intracranial anatomy, spinal anatomy, abdominal anatomy, four-chamber heart performed with no abnormalities identified. Impression: Viable intrauterine gestation cephalic presentation.
== END | disposition home or self-care (01) ==
LOC: CDIM 11:29
PROVIDERS: PCP Nurse Practitioner Family; Referring Provider Obstetrics & Gynecology; Visit Provider Obstetrics & Gynecology
DX: Z34.90 Encounter for supervision of normal pregnancy, unspecified, unspecified trimester (principal); Z3A.32 32 weeks gestation of pregnancy
CPT/HCPCS: 76805

== ENCOUNTER 2025-07-05 09:35 | Outpatient (AMB) | payer OTHER, SELFPAY ==
[2025-07-05 09:46] VITALS: BP 103/70; PULSE 97; RESP 19; TEMP 36.2; O2SAT 97; BMI 25.2
--- NOTE | 2025-07-05 09:46 | OBCLNT_ITS ---
Vital Signs 07/05/25 09:46 Height 1.63 m Height Method Stated Weight 66.905 kg Weight Measurement Method Standing Scale BMI 25.2 BP 103/70 Blood Pressure Source Automatic Cuff Blood Pressure Location Right Upper Arm Position Sitting Respiration 19 Pulse 97 Pulse Source Monitor Temp 97.2 F Temp Source Temporal Artery Scan Pulse Oximetry (%) 97 Oxygen Delivery Method Room Air Allergies/Home Meds Allergies & Medications Allergies shrimp Allergy (Severe, Verified 07/05/25 09:47) Anaphylaxis Medication Reconciliation acyclovir 400 mg tablet 400 mg PO TID #21 tabs 04/15/25 [Rx Confirmed 07/05/25] vits no.126-ferrous fum 28 mg iron-folic acid 800 mcg tablet (Classic ) 1 tab PO .QD #90 tabs 04/17/25 [Rx Confirmed 07/05/25] blood sugar diagnostic (Blood Glucose Test strips) #50 ea 06/07/25 [Rx Confirmed 07/05/25] blood-glucose meter #1 ea 06/07/25 [Rx Confirmed 07/05/25] ferrous sulfate 325 mg (65 mg iron) tablet 325 mg PO BID #60 tabs 06/07/25 [Rx Confirmed 07/05/25] lancets #100 ea 06/07/25 [Rx Confirmed 07/05/25] blood sugar diagnostic (Blood Glucose Test strips) #10 ea 07/05/25 [Rx] blood-glucose meter #1 ea 07/05/25 [Rx] lancets #100 ea 07/05/25 [Rx] Immunizations Immunizations Flu Vaccine in the Last 12 Months: No Flu Vaccine Exclusion Criteria: Refused by Patient Care OB Visit Log OB Flowsheet Initial Weight: Not Recorded Date -?-?-?-?-?-?-?-?-?-?-?-?- EGA Weight BP Alb Glu CTX Pres Fundal ht FHR Mov Dilation Station Effacement Hx Notes Visit Note 01/29/25 -?-?-?-?-?-?-?-?-?-?-?-?- 14w 5d 54.431 kg 114/78 15 140 No vaginal bleeding no cramping. Patient still nauseous willing to try medication. 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 NIPT WNL. Order SS. No labs back 03/26/25 -?-?-?-?-?-?-?-?-?-?-?-?- 22w 5d 59.024 kg 99/64 absent 23 156 act james +FM no UCs or VB Ordered US from [facility] Pt states she faints with pain and has passed out in the shower with cramps from her cycles 04/11/25 -?-?-?-?-?-?-?-?-?-?-?-?- 25w 0d 61.235 kg 102/67 absent 26 154 active +FM No UCs or VB Multiple complaints and concerns addressed 05/07/25 -?-?-?-?-?-?-?-?-?-?-?-?- 28w 5d 62.709 kg 100/64 absent 29 156 ac tive Good movement no contractions no vaginal bleeding Order glucose challenge test. Order CBC and RPR. 05/21/25 -?-?-?-?-?-?-?-?-?-?-?-?- 30w 5d 62.823 kg 108/69 absent 32 145 ac tive Good movement no contractions no loss of fluids F cindy 1 hour glucose. 189. Order 3-hour glucose 06/07/25 -?-?-?-?-?-?-?-?-?-?-?-?- 33w 1d 64.58 kg 102/68 absent cephalic 33 145 active Good movement. Denies contractions. Denies leaking or bleeding. Patient has questions about labor and . Abnormal 3- hour GTT. I ordered glucometer, lancets and test strips. Discussed GDM diet with patient. I discussed how to log sugars and parameters. Kick count twice a day. Schedule NST weekly as urgent. Patient has a follow-up ultrasound at [facility] this week. Return in 2 weeks OB check 06/21/25 -?-?-?-?-?-?-?-?-?-?-?-?- 35w 1d 64.524 kg 104/70 absent cephalic 35 145 active Patient reports she has not been checking her sugars as directed because insurance did not cover her GDM supplies. Reports movement. Needs help with disability. And patient has no OB complaints. Denies leaking, bleeding, contractions and she reports movement. Disability will start today GBS today. Discussed kick count twice a day. Discussed labor precautions. We reviewed GDM diet and compliance. Walk 40 minutes a day and 10 minutes after each meal. I reordered her diabetic supplies to [facility] to see if that would help. We discussed the importance of logging her blood sugars. Return in a week OB check 07/05/25 -?-?-?-?-?-?-?-?-?-?-?-?- 37w 1d 66.905 kg 103/70 absent cephalic 37 145 active Patient denies induction of labor for GDM. Patient is compliant with weekly NST BPP. And she has been trying to complete a diet. Patient is not testing her blood sugars. She did not get her test kit. Reports good movement. Denies leaking, bleeding or contractions Patient denies induction of labor for GDM. Patient is compliant with weekly NST BPP. And she has been trying to complete a diet. Patient is not testing her blood sugars. She did not get her test kit. Reports good movement. Denies leaking, bleeding or contractions. Patient denies induction of labor for GDM. Patient is compliant with weekly NST BPP. And she has been trying to complete a diet. Patient is not testing her blood sugars. She did not get her test kit. Reports good movement. Denies leaking, bleeding or contractions. Patient denies any complaints of herpetic lesions. And she has been taking acyclovir. I reordered glucometer, lancets, test strips to [facility]. Discussed checking 4 times a day and logging them. I discussed parameters. Discussed labor precautions. Kick count. Continue weekly NST BPP. And we discussed induction and how to go forward. Discussed danger signs symptoms and ER precautions and we discussed complications of GDM return a week or return I reordered glucometer, lanc ets, test strips to [facility]. Discussed checking 4 times a day and logging them. I discussed parameters. Discussed labor precautions. Kick count. Continue weekly NST BPP. And we discussed induction and how to go forward. 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 GC/CT-, RPR::NR, rub imm, hbsag-,hc-,hiv-, A+,ABS- Visit Date: 05/21/25 Last Updated by: Abbey Wu ([facility])MD Patient with back pain suspected sciatic. Requesting off work in 1 month. Patient will stop work June 15. Discussed labor in depth with the patient and her . She does desire trial of labor and not a primary scheduled C- section. Patient states she passes out with pain I recommend an early epidural. She does have a history of a LEEP we might have to stretch her if cervical scarring is present. Visit Date: 05/07/25 Last Updated by: Abbey Wu ([facility] Clinic)MD Left leg more swollen than the right. Suspect varicosity Visit Date: 04/11/25 Last Updated by: Abbey Wu ([facility])MD Pt presents with FOB with multiple complaints: swelling in her feet and hands, early carpal tunnel-like pain on and off in the mornings. A spider or mosquito bite on one lower leg, a cold sore on her lip. She is very anxious and again discussed that sometimes she would faint from menstrual cramps in the past. Her BP is 102/67 but she said her family has taken it at home and she has a picture on her phone of a BP around 98/56. No CHU, No SOB or chest pain. 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 Reassurance given about low BP and told it is because she is young and healthy and that BP often drops a little in the second trimester. Offered acyclovir for cold sore and reminded pt not to touch the area a lot as it can spread to other areas. If pt has vaginal herpes, she needs to call immediately and she will be treated and started on suppression at 36 weeks. I suggested no one take her BP unless she does not feel well. I told her low sodium might help her swelling but will not increase her BP. Visit Date: 03/26/25 Last Updated by: Abbey Wu ([facility])MD Labs from [facility] 01/01/25: A+/ab screen -/RI/RPR NR/ HIV-/HepBSag-/HgB 11.8 No Urine Cx or GC/Chlamydia NIPT 46 XY Visit Date: 03/02/25 Last Updated by: Abbey Wu ([facility])MD Pt doing well. Need all PNC labs on chart as none available. NIPT 46 XX Visit Date: 01/29/25 Last Updated by: Abbey Wu ([facility] Clinic)MD No labs to review. Patient states NIPT is not covered. Office Procedures OBC Clinic LOC & Office Proc's Nursing/Assessment Patient Status: Established Patient OB Clinic Nursing Assessment: Medication Reconciliation, Update PMH in EMR and Vital Signs OB Clinic Coordination of Care: Complex Care and Chronic Disease 1-5, Education Complex Pt/Fam, Consent,records obtained, informed consent, Lab and Imaging orders, Results/Orders obtained and Staff clarify orders Special Needs: Heart tones Established Patient Charge Established Patient Point Assignment: 140 Established Patient Point Charge: EP Level 4 (120-155) Assessment & Plan Diagnosis / Problem List (1) Diet controlled gestational diabetes mellitus (GDM) in third trimester: Status: Acute (2) Encounter for supervision of high risk in third trimester, antepartum: Status: Acute Plan Continue valacyclovir as directed. Be vigilant for looking for signs or symptoms of herpes. Discussed precautions kick count. Continue weekly NST BPP. I reordered patient's diabetic kit and discussed parameters and when to test. Continue GDM diet. Return in a week OB check. Patient declined induction of labor.. A1c today Additional Plan Follow Up: 1 Week (obc)
== END 2025-07-05 10:12 | disposition home or self-care (01) ==
LOC: HODSOBC 09:35
PROVIDERS: Supervising Provider Advanced Practice Midwife; Visit Provider Advanced Practice Midwife
DX: O09.893 Supervision of other high risk pregnancies, third trimester (principal); O24.410 Gestational diabetes mellitus in pregnancy, diet controlled; Z3A.37 37 weeks gestation of pregnancy; Z28.21 Immunization not carried out because of patient refusal; Z91.013 Allergy to seafood
CPT/HCPCS: 99214; G0463

== ENCOUNTER → 2025-07-06 | Outpatient (CLI) | payer OTHER, SELFPAY ==
[2025-07-06 08:39] LABS: Glucose Estimated Average 117 mg/dL (80-131); Hemoglobin A1C 5.7 % Hgb (4.8-6.0)
== END | disposition home or self-care (01) ==
LOC: COPL 07:12
PROVIDERS: PCP Nurse Practitioner Family; Referring Provider Advanced Practice Midwife; Visit Provider Advanced Practice Midwife
DX: O24.410 Gestational diabetes mellitus in pregnancy, diet controlled (principal)
CPT/HCPCS: 36415; 83036

== ENCOUNTER 2025-07-17 08:11 | Outpatient (RCR) | payer OTHER, SELFPAY ==
--- NOTE | 2025-06-19 08:15 | XR_ITS ---
Examination: Biophysical profile, ultrasound Date and time of exam: 06/19/2025, 8:14 a.m. INDICATION: GDM COMPARISON: OB ultrasound 06/15/2025 Technique: Multiple transabdominal sonographic images of the pelvis abdomen obtained. Attention is directed to the breathing movement, gross body movement, amniotic fluid volume and tone. Findings: Single live IUP in cephalic position. Total biophysical profile is 8 of 8. breathing movement is 2. Gross body movement is 2. tone is 2. Qualitative amniotic fluid volume is 2 DEANNE = 14.8 cm. FHR = 150 bpm. Impression: Biophysical profile is 8 of 8.
[2025-06-19 09:00] VITALS: BP 108/70; PULSE 87; RESP 16; TEMP 37
--- NOTE | 2025-06-27 08:20 | XR_ITS ---
Examination: Biophysical profile, ultrasound Date and time of exam: June 27, 2025, 0822 hours INDICATIONS: Diagnosis gestational diabetes Technique: Multiple transabdominal sonographic images of the pelvis abdomen obtained. Attention is directed to the breathing movement, gross body movement, amniotic fluid volume and tone. Findings: Amniotic fluid index 18.3 cm Total biophysical profile is 8 of 8. breathing movement is 2. Gross body movement is 2. tone is 2. Qualitative amniotic fluid volume is 2 Impression: Biophysical profile is 8 of 8.
[2025-06-27 08:57] VITALS: BP 99/60; PULSE 87; RESP 16; TEMP 36.7
--- NOTE | 2025-07-03 08:25 | XR_ITS ---
Examination: Biophysical profile, ultrasound Date and time of exam: July 03 2025, 0830 hours INDICATIONS: Diagnosis gestational diabetes Technique: Multiple transabdominal sonographic images of the pelvis abdomen obtained. Attention is directed to the breathing movement, gross body movement, amniotic fluid volume and tone. Findings: Amniotic fluid index 14.4 Total biophysical profile is 8 of 8. breathing movement is 2. Gross body movement is 2. tone is 2. Qualitative amniotic fluid volume is 2 Impression: Biophysical profile is 8 of 8.
[2025-07-03 08:55] VITALS: BP 103/62; PULSE 92; RESP 18; TEMP 36.8
--- NOTE | 2025-07-11 08:11 | XR_ITS ---
EXAMINATION: US OB biophysical profile ORDERING PROVIDER: Marycruz Banks CNM HISTORY: WEEKLY NST/BPP; GDM TECHNIQUE: Multiple transabdominal sonographic images were obtained by instructional design technologist and submitted for interpretation. COMPARISON: 07/03/2025, biophysical profile. FINDINGS: FETUS: [place]. PRESENTATION: Cephalic. HEART MOTION: 133 beats/min. AMNIOTIC FLUID INDEX: 11.8 cm BREATHING MOVEMENT: 2 . GROSS BODY MOVEMENT: 2 . TONE: 2 . QUALITATIVE AMNIOTIC FLUID VOLUME: 2 TOTAL BIOPHYSICAL PROFILE: 8 of 8 . IMPRESSION: Single live intrauterine gestation with biophysical profile 8 of 8.
[2025-07-11 08:37] VITALS: BP 114/70; PULSE 75; RESP 16; TEMP 36.7
--- NOTE | 2025-07-17 08:17 | XR_ITS ---
Examination: Biophysical profile, ultrasound Date and time of exam: July 17, 2025, 0820 hours INDICATIONS: Diagnosis gestational diabetes, pelvic and back pain beginning 2 days ago Technique: Multiple transabdominal sonographic images of the pelvis abdomen obtained. Attention is directed to the breathing movement, gross body movement, amniotic fluid volume and tone. Findings: Amniotic fluid index 17.9 cm Total biophysical profile is 8 of 8. breathing movement is 2. Gross body movement is 2. tone is 2. Qualitative amniotic fluid volume is 2 Impression: Biophysical profile is 8 of 8.
[2025-07-17 08:40] VITALS: BP 107/62; PULSE 85; RESP 16; TEMP 36.7
== END 2025-07-17 23:59 | disposition home or self-care (01) ==
LOC: S4S1 08:11
PROVIDERS: Referring Provider Advanced Practice Midwife; Visit Provider Advanced Practice Midwife
DX: O24.410 Gestational diabetes mellitus in pregnancy, diet controlled (principal); O09.93 Supervision of high risk pregnancy, unspecified, third trimester; Z3A.38 38 weeks gestation of pregnancy
CPT/HCPCS: 59025; 76819

== ENCOUNTER 2025-07-17 09:46 | Outpatient (AMB) | payer OTHER, SELFPAY ==
--- NOTE | 2025-07-17 09:55 | OBCLNT_ITS ---
Vital Signs 07/17/25 10:18 Height 1.63 m Height Method Stated Weight 67.812 kg Weight Measurement Method Standing Scale BMI 25.5 BP 114/73 Blood Pressure Source Automatic Cuff Blood Pressure Location Left Upper Arm Position Sitting Respiration 16 Pulse 85 Pulse Source Monitor Temp 97.9 F Temp Source Oral Pulse Oximetry (%) 96 Oxygen Delivery Method Room Air Allergies/Home Meds Allergies & Medications Allergies shrimp Allergy (Severe, Verified 07/17/25 10:19) Anaphylaxis Medication Reconciliation acyclovir 400 mg tablet 400 mg PO TID #21 tabs 04/15/25 [Rx Confirmed 07/17/25] vits no.126-ferrous fum 28 mg iron-folic acid 800 mcg tablet (Classic ) 1 tab PO .QD #90 tabs 04/17/25 [Rx Confirmed 07/17/25] blood sugar diagnostic (Blood Glucose Test strips) #50 ea 06/07/25 [Rx Confirmed 07/17/25] blood-glucose meter #1 ea 06/07/25 [Rx Confirmed 07/17/25] ferrous sulfate 325 mg (65 mg iron) tablet 325 mg PO BID #60 tabs 06/07/25 [Rx Confirmed 07/17/25] lancets #100 ea 06/07/25 [Rx Confirmed 07/17/25] blood sugar diagnostic (Blood Glucose Test strips) #10 ea 07/05/25 [Rx Confirmed 07/17/25] blood-glucose meter #1 ea 07/05/25 [Rx Confirmed 07/17/25] lancets #100 ea 07/05/25 [Rx Confirmed 07/17/25] hydrocortisone 2.5 % topical cream with perineal applicator (Proctosol HC) 1 applic NM QD-BID PRN hemorrhoids #30 grams 07/17/25 [Rx] Immunizations Immunizations Flu Vaccine in the Last 12 Months: No Flu Vaccine Exclusion Criteria: Refused by Patient Care OB Visit Log OB Flowsheet Initial Weight: Not Recorded Date -?-?-?-?-?-?-?-?-?-?-?-?- EGA Weight BP Alb Glu CTX Pres Fundal ht FHR Mov Dilation Station Effacement Hx Notes Visit Note 01/29/25 -?-?-?-?-?-?-?-?-?-?-?-?- 14w 5d 54.431 kg 114/78 15 140 No vaginal bleeding no cramping. Patient still nauseous willing to try medication. 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 NIPT WNL. Order SS. No labs back 03/26/25 -?-?-?-?-?-?-?-?-?-?-?-?- 22w 5d 59.024 kg 99/64 absent 23 156 act james +FM no UCs or VB Ordered US from [facility] Pt states she faints with pain and has passed out in the shower with cramps from her cycles 04/11/25 -?-?-?-?-?-?-?-?-?-?-?-?- 25w 0d 61.235 kg 102/67 absent 26 154 active +FM No UCs or VB Multiple complaints and concerns addressed 05/07/25 -?-?-?-?-?-?-?-?-?-?-?-?- 28w 5d 62.709 kg 100/64 absent 29 156 ac tive Good movement no contractions no vaginal bleeding Order glucose challenge test. Order CBC and RPR. 05/21/25 -?-?-?-?-?-?-?-?-?-?-?-?- 30w 5d 62.823 kg 108/69 absent 32 145 ac tive Good movement no contractions no loss of fluids F cindy 1 hour glucose. 189. Order 3-hour glucose 06/07/25 -?-?-?-?-?-?-?-?-?-?-?-?- 33w 1d 64.58 kg 102/68 absent cephalic 33 145 active Good movement. Denies contractions. Denies leaking or bleeding. Patient has questions about labor and . Abnormal 3- hour GTT. I ordered glucometer, lancets and test strips. Discussed GDM diet with patient. I discussed how to log sugars and parameters. Kick count twice a day. Schedule NST weekly as urgent. Sheri henry has a follow-up ultrasound at OB this week. Return in 2 weeks OB check 06/21/25 -?-?-?-?-?-?-?-?-?-?-?-?- 35w 1d 64.524 kg 104/70 absent cephalic 35 145 active Patient reports she has not been checking her sugars as directed because insurance did not cover her GDM supplies. Reports movement. Needs help with disability. And leeanna sandoval has no OB complaints. Denies leaking, bleeding, contractions and she reports movement. Disability will start today GBS today. Discussed kick count twice a day. Discussed labor precautions. We reviewed GDM diet and compliance. Walk 40 minutes a day and 10 minutes after each meal. I reordered her diabetic supplies to [facility] to see if that would help. We discussed the importance of logging her blood sugars. Return in a week OB check 07/05/25 -?-?-?-?-?-?-?-?-?-?-?-?- 37w 1d 66.905 kg 103/70 absent cephalic 37 145 active Patient denies induction of labor for GDM. Patient is compliant with weekly NST BPP. And she has been trying to complete a diet. Patient is not testing her blood sugars. She did not get her test kit. Reports good movement. Denies leaking, bleeding or contractions Patient denies induction of labor for GDM. Patient is compliant with weekly NST BPP. And she has been trying to complete a diet. Patient is not testing her blood sugars. She did not get her test kit. Reports good movement. Denies leaking, bleeding or contractions. Patient denies induction of labor for GDM. Patient is compliant with weekly NST BPP. And she has been trying to complete a diet. Patient is not testing her blood sugars. She did not get her test kit. Reports good movement. Denies leaking, bleeding or contractions. Patient denies any complaints of herpetic lesions. And she has been taking acyclovir. I reordered glucometer, lancets, test strips to [facility]. Discussed checking 4 times a day and logging them. I discussed parameters. Discussed labor precautions. Kick count. Continue weekly NST BPP. And we discussed induction and how to go forward. Dis cussed danger signs symptoms and ER precautions and we discussed complications of GDM return a week or return I reordered glucometer, lanc ets, test strips to [facility]. Discussed checking 4 times a day and logging them. I discussed parameters. Discussed labor precautions. Kick count. Continue weekly NST BPP. And we discussed induction and how to go forward. Discussed danger signs symptoms and ER precautions and we discussed complications of GDM return a week or return, A1c 07/17/25 -?-?-?-?-?-?-?-?-?-?-?-?- 38w 6d 67.812 kg 114/73 absent cephalic 39 145 active Declined pelvic exam today. Patient had NST BPP that was reactive with normal DEANNE today. Occasional contraction and pressure. And reports good movement IOL 07/26/25 IOL 07/26/25, patient did no t want to be induced at 39 weeks. She reports that when she checks her blood sugars did not are normal, even in on the lower side in the 90s. But she agrees to think about being induced at term. Repeat kick count twice a day was reviewed. We discussed GDM diet and testing. 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 GC/CT-, RPR::NR, rub imm, hbsag-,hc-,hiv-, A+,ABS- Visit Date: 05/21/25 Last Updated by: Abbey Wu ([facility])MD Patient with back pain suspected sciatic. Requesting off work in 1 month. Patient will stop work June 15. Discussed labor in depth with the patient and her . She does desire trial of labor and not a primary scheduled . Patient states she passes out with pain I recommend an early epidural. She does have a history of a LEEP we might have to stretch her if cervical scarring is present. Visit Date: 05/07/25 Last Updated by: Abbey Wu ([facility])MD Left leg more swollen than the right. Suspect varicosity Visit Date: 04/11/25 Last Updated by: Abbey Wu ([facility])MD Pt presents with FOB with multiple complaints: swelling in her feet and hands, early carpal tunnel-like pain on and off in the mornings. A spider or mosquito bite on one lower leg, a cold sore on her lip. She is very anxious and again discussed that sometimes she would faint from menstrual cramps in the past. Her BP is 102/67 but she said her family has taken it at home and she has a picture on her phone of a BP around 98/56. No CHU, No SOB or chest pain. 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 Reassurance given about low BP and told it is because she is young and healthy and that BP often drops a little in the second trimester. Offered acyclovir for cold sore and reminded pt not to touch the area a lot as it can spread to other areas. If pt has vaginal herpes, she needs to call immediately and she will be treated and started on suppression at 36 weeks. I suggested no one take her BP unless she does not feel well. I told her low sodium might help her swelling but will not increase her BP. Visit Date: 03/26/25 Last Updated by: Abbey Wu ([facility])MD Labs from [facility] 01/01/25: A+/ab screen -/RI/RPR NR/ HIV-/HepBSag-/HgB 11.8 No Urine Cx or GC/Chlamydia NIPT 46 XY Visit Date: 03/02/25 Last Updated by: Abbey Wu ([facility])MD Pt doing well. Need all PNC labs on chart as none available. NIPT 46 XX Visit Date: 01/29/25 Last Updated by: Abbey Wu ([facility])MD No labs to review. Patient states NIPT is not covered. Office Procedures O[facility] Clinic LOC & Office Proc's Nursing/Assessment Patient Status: Established Patient OB Clinic Nursing Assessment: Medication Reconciliation, Update PMH in EMR and Vital Signs OB Clinic Coordination of Care: Complex Care and Chronic Disease 1-5, Consent,records obtained, informed consent, Education Simp Pt/Fam, 1 Ins Authorization, Lab and Imaging orders, Results/Orders obtained and Staff clarify orders Special Needs: Heart tones Established Patient Charge Established Patient Point Assignment: 150 Established Patient Point Charge: EP Level 4 (120-155) Assessment & Plan Diagnosis / Problem List (1) Diet controlled gestational diabetes mellitus (GDM) in third trimester: Status: Acute (2) Encounter for supervision of high risk in third trimester, antepartum: Status: Acute Plan Schedule induction for labor July 26. Discussed labor precautions and kick count. Continue to follow GDM diet. Increase proteins. Continue monitoring glucose sugars 4 times a day. And weekly NST BPP return in a week for OB check Additional Plan Follow Up: 1 Week (obc)
[2025-07-17 10:18] VITALS: BP 114/73; PULSE 85; RESP 16; TEMP 36.6; O2SAT 96; BMI 25.5
== END 2025-07-17 11:18 | disposition home or self-care (01) ==
LOC: HODSOBC 09:46
PROVIDERS: Supervising Provider Advanced Practice Midwife; Visit Provider Advanced Practice Midwife
DX: O09.893 Supervision of other high risk pregnancies, third trimester (principal); O24.410 Gestational diabetes mellitus in pregnancy, diet controlled; Z3A.38 38 weeks gestation of pregnancy; Z91.013 Allergy to seafood; Z28.21 Immunization not carried out because of patient refusal
CPT/HCPCS: 99213; 99214; G0463

== ENCOUNTER 2025-07-20 01:18 | Inpatient (IN) | payer OTHER, SELFPAY ==
[2025-07-20] VITALS (267 sets, daily range): BP systolic 84–198; BP diastolic 47–126; PULSE 64–162; RESP 16–97; TEMP 36.3–37.3; O2SAT 85–100; BMI 25.9
[2025-07-20 02:09] LABS: ROM Kit Lot # 58106258; ROM Swab Mixed By: CARMP2; Rupture of Fetal Membranes Negative (Negative); Swb Mxed in Solvent 1 min? Yes
--- NOTE | 2025-07-20 02:35 | XR_ITS ---
EXAMINATION: age Limited TECHNIQUE: Limited transabdominal sonographic images pelvis Date and time: July 20, 2025, 0329 hours INDICATIONS: Labor contractions beginning 10:30 p.m. last night FINDINGS: Viable intrauterine gestation cephalic presentation Estimated weight 3743 g Cardiac motion 131 bpm IMPRESSION: Viable intrauterine gestation cephalic presentation
[2025-07-20] MEDS: RINGERS LACTATED 1000 ML 1,000 ML 125 ML IV ×3 (03:06→14:42)
[2025-07-20 03:12] LABS: Basophils # (Auto) 0.0 Thou/mm3 (0.0-0.2); Basophils % (Auto) 0 % (0-2.5); Eosinophils # (Auto) 0.1 Thou/mm3 (0.0-0.5); Eosinophils % (Auto) 1 % (0-10); Hematocrit 37.9 % (36.0-46.0); Hemoglobin 13.0 g/dL (12.0-16.0); Immature Granulocytes Auto 0.33 Thou/mm3 (0.00-0.00); Lymphocytes # (Auto) 2.2 Thou/mm3 (1.0-4.8); Lymphocytes % (Auto) 21 % (10-50); Mean Corpuscular HGB Conc 34.3 g/dl (31.0-37.0); Mean Corpuscular Hemoglobin 30.4 pg (25.0-35.0); Mean Corpuscular Volume 89 fL (80-100); Monocytes # (Auto) 1.1 Thou/mm3 (0.0-0.8); Monocytes % (Auto) 10 % (0-12); Neutrophils # (Auto) 6.9 Thou/mm3 (1.8-7.7); Neutrophils % (Auto) 65 % (37-80); Nucleated Red Blood Cell # 0.00 Thou/mm3 (0.00-0.00); Nucleated Red Blood Cell % 0 /100 WBC (0); Platelet Count 225 Thou/mm3 (140-440); RDW Standard Deviation 42.1 fL (36.4-46.3); Red Blood Count 4.27 Miln/mm3 (4.00-5.20); White Blood Count 10.6 Thou/mm3 (3.6-11.0)
--- NOTE | 2025-07-20 04:21 | PRELIM_ITS ---
Obstetric ultrasound. July 20, 2025 03:29 hours Clinical history: Unknown presentation and EFW. Comparison: No prior study is available for comparison. Findings: There is a gravid uterus containing a single live fetus in cephalic presentation. biometry corresponds to a mean gestational age of 39 weeks 2 days. cardiac activity is present with a heart rate of 131 beats per minute. The placenta is visualized; no placenta previa is identified on the submitted images. Amniotic fluid volume appears adequate. Estimated weight is 3743 g ?? 554 g. The estimated due date by ultrasound is 07/25/2025. Impression: Single live intrauterine fetus in cephalic presentation, with an estimated gestational age of 39 weeks 2 days and an estimated weight of 3743 g. Amniotic fluid appears adequate. Report Electronically Signed By: Ghada Stearns 07/20/2025 4:20:42 AM [EST]
[2025-07-20 05:58] LABS: Syphilis Nonreactive (Nonreactive)
--- NOTE | 2025-07-20 06:21 | PD.LDHP ---
Documentation for date of: 07/20/25 OB Labor/Induct. HPI History of Present Illness Chief complaint: contractions : 1 Para: 0 Term pregnancies: 0 pregnancies: 0 Living children: 0 History of Abortions: Spontaneous and Elective: 0 History of Vaginal deliveries: 1 History of sections: No History of : No Date of last menstrual period: 10/19/24 JANY: 07/26/25 Gestational Age (weeks): 39 Gestational Age (days): 1 Gestational age based on last menstrual period: 39 History of present illness: Patient presents for regular, painful ctx. No LOF. No vaginal bleeding. Normal movement. No fevers/chills. History of Present Dating criteria: LMP confirmed by 1st trimester US (10wk office u/s) Adequate Care: Yes Ultrasounds: normal mid trimester US (at 24wk) Narrative: GDM Labs Maternal Blood Type: A Pos Labs: Positive: Rubella Titre, Negative: RPR, Hepatitis B, HIV and Group Beta Strep and Unknown: Chlamydia and Gonorrhea Narrative: Labs from [facility] 01/01/25: A+/ab screen -/RI/RPR NR/ HIV-/HepBSag-/HgB 11.8 NIPT 46 XY 1hr glucola 189, abnormal 3hr GTT Review of Systems Review of Systems Narrative Review of Systems: Review of Systems Systems Reviewed: All systems reviewed, normal except as documented Constitutional Constitutional: Denies body ache(s), Denies chills, Denies fever(s) and Denies headache(s) ENT Ears, Nose, Mouth, and Throat: Denies headache(s) and Denies vertigo Cardiovascular Cardiovascular: Denies chest pain, Denies palpitations, Denies dyspnea and Denies syncope Respiratory Respiratory: Denies cough, Denies dyspnea Gastrointestinal Gastrointestinal: Denies nausea and Denies vomiting Neurologic Neurologic: Denies convulsions, Denies headache(s), Denies other visual disturbances, Denies syncope and Denies vertigo Past Medical History Family History OTHER FAMILY HX: non-contributory Surgical History SURGICAL: Negative Section OTHER SURGICAL HX: LEEP 2019 Dr. 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 Hx of gonorrhea 2012 Allergy to shrimp Meds Home Medications and Allergies Allergies Allergy/AdvReac Type Severity Reaction Status Date / Time shrimp Allergy Severe Anaphylaxis Verified 07/20/25 02:12 OB Exam Physical Exam Vital signs: Temp Pulse Resp BP Pulse Ox 97.3 F 84 19 104/59 L 97 07/20/25 05:13 07/20/25 05:57 07/20/25 05:13 07/20/25 05:57 07/20/25 06:18 Narrative: General: well developed, well nourished, no acute distress, conversant Cardiac: normal heart rate Lungs: breathing without distress Abdomen: soft, gravid, non-tender, no rebound or guarding Extremities: no edema BLE Detailed Labor and Delivery Exam Dilation (cm): 3 Effacement (%): 80 Cervix position: mid station: -2 Consistency: soft Presentation: Vertex Membranes: intact monitor accelerations: 15x15 monitor decelerations: None skilled nursing variability: Moderate (11-25) Contraction frequency (min): q3-6 OB Results Labs 07/20/25 02:45 Labs: Short CBC 07/20/25 Range/Units 02:45 WBC 10.6 (3.6-11.0) Thou/mm3 Hgb 13.0 (12.0-16.0) g/dL Hct 37.9 (36.0-46.0) % Plt Count 225 (140-440) Thou/mm3 Impressions Impression: preliminary report Obstetric ultrasound. July 20, 2025 03:29 hours Clinical history: Unknown presentation and EFW. Comparison: No prior study is available for comparison. Findings: There is a gravid uterus containing a single live fetus in cephalic presentation. biometry corresponds to a mean gestational age of 39 weeks 2 days. cardiac activity is present with a heart rate of 131 beats per minute. The placenta is visualized; no placenta previa is identified on the submitted images. Amniotic fluid volume appears adequate. Estimated weight is 3743 g ?? 554 g. The estimated due date by ultrasound is 07/25/2025. Impression: Single live intrauterine fetus in cephalic presentation, with an estimated gestational age of 39 weeks 2 days and an estimated weight of 3743 g. Amniotic fluid appears adequate. OB Assessment & Plan Assessment and Plan (1) Active labor at term: Status: Acute Assessment and plan: Billie is a 35yo with SIUP at 39&1wk presenting in early labor. Regular/painful contractions, SCE: 3/80/-2. Vitals wnl, benign exam. Reassuring assessment. Baseline fingerstick glucose on admission: 103. 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, a rare sarcoma removed at [place] in 2015, 2017 Hx of LEEP 2019, she is unsure what level of HANSA was treated Vertigo Vasovagal/syncopal reaction to pain (faints with menstrual cramps) Depression/anxiety, no meds Hx of gonorrhea 2011 Allergy to shrimp Plan: -Admit to L&D -Establish IV, routine labs including NG/CT testing since unable to find results on chart -CEFM -Clear liquid diet -Counseled/consented re: , possible augmentation of labor -GBS status: negative -Anticipate -Safe to proceed (2) Diet controlled gestational diabetes mellitus (GDM) in third trimester: Status: Acute (3) Encounter for supervision of high risk in third trimester, antepartum: Status: Acute
[2025-07-20] MEDS: ONDANSETRON INJ 2 MG/ML INJ 2 ML 4 MG IVP ×2 (06:51→18:18)
[2025-07-20] MEDS: DEXTROSE 5%-0.45% NS 1,000 ML 250 ML IV (08:53)
--- NOTE | 2025-07-20 08:57 | PD.LDPN ---
Documentation for date of: 07/20/25 OB Labor Progress Note Pelvic Exam Dilation (cm): 3 Effacement (%): 80 station: -2 Amniotic membrane status: Leaking Contractions Monitor mode: Internal Contraction frequency: 1-6.5 Contraction pattern: Coupling Contraction intensity: Moderate Status status: Category ll History of Present Illness HPI Patient doing well this morning. Last exam was 6 cm with 100% effacement and 0 station. Due to multiple medical problems patient is not able to tolerate left lateral position. Occasional category 2 heart rate tracing resolved to category 1 after IV D5 bolus Assessment and plan Continue current management, oxytocin after tracing results. Anticipate vaginal delivery
[2025-07-20] MEDS: OXYTOCIN in NS 30 units 30 UNIT/500 ML BAG IV (12:20)
[2025-07-20 15:47] LABS: Chlamydia trachomatis PCR Negative (Not Detect); Neisseria Gonorrhoeae DNA PCR Negative (Not Detect); Trichomonas Negative (Negative)
[2025-07-20] MEDS: TRANEXAMIC ACID 1,000 MG IVPB 1,000 MG/100 ML BAG 200 MG IV (17:32)
[2025-07-20] MEDS: OXYTOCIN in NS 20 units 20 UNIT/1,000 ML BAG 125 UNIT IV (17:32)
--- NOTE | 2025-07-20 18:02 | PD.LDDELS ---
Data ([facility]) Data Hx Section: No : 1 Term: 0 : 0 Livin Abortions: Spontaneous & Theraputic: 0 Delivery Data (Mahoney) Labor Data Initiation of labor: Augmentation Induction/Augmentation Agent: Pitocin ROM date: 07/20/25 ROM time: 02:30 Amniotic membrane rupture type: Spontaneous Amniotic fluid description: Clear Delivery Data Onset of labor date: 07/20/25 Onset of labor time: 02:15 Complete dilation date: 07/20/25 Complete dilation time: 16:00 delivery date: 07/20/25 delivery time: 17:29 Placenta delivery date: 07/20/25 Placenta delivery time: 17:32 Stage 1 total time: Labor - Stage 1 Duration 13 hours and 45 minutes Delivered by: Navarro Valle Delivery nurse: gina Livestock Laborer at delivery: Yes (Dr. Sawyer) Support person(s) at delivery: FOB Other staff at delivery: SAVANNAH Parada RN Delivery Method Delivery method: Normal Vaginal Delivery Presentation: Vertex Anesthesia Type Anesthesia Type: Epidural Placenta Placenta delivery description: Manual Removal Cord blood sent to lab: Yes cord blood collection: Cord Blood Type Episiotomy Episiotomy description: Right Mediolateral Umbilical Cord cord description: 3 Vessels [place] Data (Mahoney) Data order: 1 's gender: Female Identification band number: [id number] weight (gms): 3620 g Weight (pounds): 7 lbs and 15.7 ozs [place] length: 55.88 cm 1 minute: 6 5 minutes: 7 10 minutes: 8
--- NOTE | 2025-07-20 18:03 | PD.GYNPROC ---
Operative Note - PHOTOGRAPHIC COLORIST Procedure Date of procedure: 07/20/25 Procedure Performed: From assisted vacuum-assisted vaginal delivery Right mediolateral episiotomy and repair Manual removal of placenta Indication: 35-year-old G1, P0 in labor with full dilatation of cervix with poor maternal pushing effort Category 2 heart rate tracing with intermittent deep late decelerations Anesthesia type: Epidural Procedure description: At the time of my arrival patient was fully dilated with category 2 heart rate tracing with intermittent late decelerations after every contraction. Patient was informed that we need to effect delivery soon or need to proceed with delivery by if the tracing worsen. Informed consent was obtained. After detailed discussion patient elected to try to push with the epidural switched off and attempted vacuum delivery. Patient was placed in the dorsal lithotomy position. The perineum was prepped in the usual sterile fashion. The Dickerson catheter was removed and the IUPC was removed. During maternal pushing the vacuum was applied at the +1 station. A total of 3 pulls were applied with 3 pop-off's with successful delivery. Pressure was maintained in the normal range. During this process right mediolateral episiotomy was made. The infant was delivered in the right occipitoposterior position. The head restituted to the lateral position. The first the anterior shoulder was delivered and then the posterior followed by the rest of the body. Infant was placed on the mother's abdomen umbilical cord was doubly clamped and divided. was handed over to the waiting team. Placenta was delivered manually The laceration was inspected and there were bilateral sulcus tears as well as the right mediolateral episiotomy. All the lacerations were repaired using 2-0 Vicryl. A vaginal packing was placed for additional pressure. All instruments were now withdrawn. The perineum was cleaned and the patient was taken out of lithotomy position. A ice pack was placed on the perineum. Patient tolerated the entire procedure well. Estimated blood loss (ml): 500 Complications: none Diagnosis Discharge Diagnosis (1) Active labor at term: Status: Acute (2) Diet controlled gestational diabetes mellitus (GDM) in third trimester: Status: Acute (3) Vacuum-assisted vaginal delivery: Status: Acute (4) Perineal laceration complicating delivery: Status: Acute Problem List Completed Was Problem List Reviewed/Reconciled?: Yes
[2025-07-20] MEDS: RINGERS LACTATED 1000 ML 1,000 ML 999 ML IV (18:59)
[2025-07-20] MEDS: IBUPROFEN TAB 400 MG TABLET 800 MG PO (19:00)
[2025-07-20 19:28] LABS: Basophils # (Auto) 0.0 Thou/mm3 (0.0-0.2); Basophils % (Auto) 0 % (0-2.5); Eosinophils # (Auto) 0.0 Thou/mm3 (0.0-0.5); Eosinophils % (Auto) 0 % (0-10); Hematocrit 27.3 % (36.0-46.0); Hemoglobin 9.1 g/dL (12.0-16.0); Immature Granulocytes Auto 0.15 Thou/mm3 (0.00-0.00); Lymphocytes # (Auto) 0.5 Thou/mm3 (1.0-4.8); Lymphocytes % (Auto) 3 % (10-50); Mean Corpuscular HGB Conc 33.3 g/dl (31.0-37.0); Mean Corpuscular Hemoglobin 30.4 pg (25.0-35.0); Mean Corpuscular Volume 91 fL (80-100); Monocytes # (Auto) 1.4 Thou/mm3 (0.0-0.8); Monocytes % (Auto) 8 % (0-12); Neutrophils # (Auto) 15.2 Thou/mm3 (1.8-7.7); Neutrophils % (Auto) 88 % (37-80); Nucleated Red Blood Cell # 0.00 Thou/mm3 (0.00-0.00); Nucleated Red Blood Cell % 0 /100 WBC (0); Platelet Count 182 Thou/mm3 (140-440); RDW Standard Deviation 43.8 fL (36.4-46.3); Red Blood Count 2.99 Miln/mm3 (4.00-5.20); White Blood Count 17.3 Thou/mm3 (3.6-11.0)
--- NOTE | 2025-07-20 23:06 | PC.NURSE ---
Patient was accompanied by this nurse for her initial void after delivery. Patient denied any dizziness, light headed and visual changes before voiding but after voiding she started to complain having dizziness and light headed. Bleeding was minimal, vitals were BP 94/57, HR 97, SPO2 was 97%. This nurse stayed with the patient and called another nurse to bring Stedy so patient can rest and return to her bed. Patient stated she feels better and wanted to rest. Significant other present at bedside.
[2025-07-21] VITALS (15 sets, daily range): BP systolic 90–111; BP diastolic 43–78; PULSE 79–114; RESP 16–20; TEMP 36.6–37.1; O2SAT 97–99
[2025-07-21] MEDS: IBUPROFEN TAB 400 MG TABLET 800 MG PO ×3 (03:34→19:40)
[2025-07-21 05:34] LABS: Basophils # (Auto) 0.1 Thou/mm3 (0.0-0.2); Basophils % (Auto) 0 % (0-2.5); Eosinophils # (Auto) 0.0 Thou/mm3 (0.0-0.5); Eosinophils % (Auto) 0 % (0-10); Hematocrit 20.7 % (36.0-46.0); Immature Granulocytes Auto 0.27 Thou/mm3 (0.00-0.00); Lymphocytes # (Auto) 1.3 Thou/mm3 (1.0-4.8); Lymphocytes % (Auto) 5 % (10-50); Mean Corpuscular HGB Conc 33.8 g/dl (31.0-37.0); Mean Corpuscular Hemoglobin 30.7 pg (25.0-35.0); Mean Corpuscular Volume 91 fL (80-100); Monocytes # (Auto) 2.4 Thou/mm3 (0.0-0.8); Monocytes % (Auto) 10 % (0-12); Neutrophils # (Auto) 19.7 Thou/mm3 (1.8-7.7); Neutrophils % (Auto) 83 % (37-80); Nucleated Red Blood Cell # 0.00 Thou/mm3 (0.00-0.00); Nucleated Red Blood Cell % 0 /100 WBC (0); Platelet Count 179 Thou/mm3 (140-440); RDW Standard Deviation 43.4 fL (36.4-46.3); Red Blood Count 2.28 Miln/mm3 (4.00-5.20); White Blood Count 23.6 Thou/mm3 (3.6-11.0)
[2025-07-21 05:47] LABS: Hemoglobin 7.0 g/dL (12.0-16.0)
--- NOTE | 2025-07-21 06:41 | PC.NURSE ---
MD (Dr Valle) was notified regarding patient's hemoglobin and hematocrit result as well as patient having dizziness and light headedness every time she got up to void. Patient uses bedpan. New orders were given.
[2025-07-21] MEDS: DOCUSATE SOD 100 MG CAPSULE PO (08:06)
[2025-07-21] MEDS: HYDROCORTISONE ACET CR 2.5% 30 GM TUBE PR (09:35)
--- NOTE | 2025-07-21 11:54 | PC.SS ---
JAVA SYBASE DEVELOPER conducted bedside contact with the patient to address nursing referral indicating patient possessed history of anxiety.? JAVA SYBASE DEVELOPER introduced self and role.? At bedside with patient was Linus HUDDLESTON.? Patient gave permission for FOB to be present during discussion.? Patient confirmed possessing history of anxiety.? Per diagnosed with anxiety in 2017.? Patient is not prescribed medication or participating in therapy.? Patient reports that level of anxiety is not impairing daily functioning.? Patient is gainfully employed.? Patient reports no current possession of anxiety.? FOB states no concerns with patient?s emotional status.? Infant Polina is the patient?s first child.? delivered via naturally.? Patient plans on the infant.? OB services provided by Marycruz Banks. ?Patient reports compliance with OB appointments.? Patient is receiving WIC.? Patient is not aligned with SNAP or TANF.? Patient denies history of alcohol/drug use.? Patient denies episodes of domestic violence.? Patient has access to appropriate supplies and equipment.? FOB will provide transportation upon discharge.? Patient describes possessing support system consisting of spouse and extended family.? JAVA SYBASE DEVELOPER provided community resources to include [employer] and [employer].? No further intervention required at this time, high school social science teacher will be available to address any further concerns.? JAVA SYBASE DEVELOPER updated bedside nurse.?
--- NOTE | 2025-07-21 14:13 | ESPR_ITS ---
Subjective Subjective Interval history: Patient has no/ complaints Headache no Blurry vision no Chest pain no Palpitations no Shortness of breath no Nausea or vomiting or constipation no Back pain no Dysuria no Dizziness no calf pain no She is voiding spontaneously on a bed alberts Passing flatus yes Lochia minimal yes Exam Vital Signs Temp Pulse Resp BP Pulse Ox O2 Del Method 98.1 F 100 18 97/56 L 98 Room Air 07/21/25 13:36 07/21/25 13:36 07/21/25 13:36 07/21/25 13:36 07/21/25 13:36 07/21/25 11:25 Narrative Exam alert x3 chest clear CVS RRR NO thyromegaly Uterus is nontender Uterus is firm/ appropriate size Just below the umbilicus Bowel sounds present Abdomen soft no hernias noted/no CVAT No calf tenderness Edema mild vaginal packing removed Will monitor for bleeding Patient is receiving Blood transfusion at this time Bleeding is controlled Objective Labs 07/22/25 00:27 Labs: Laboratory Results - last 24 hr 07/20/25 07/20/25 07/20/25 02:45 07:20 18:53 WBC 17.3 H D RBC 2.99 L Hgb 9.1 L D Hct 27.3 L D MCV 91 MCH 30.4 MCHC 33.3 RDW Std Deviation 43.8 Plt Count 182 D Neut % (Auto) 88 H Lymph % (Auto) 3 L [place] % (Auto) 8 Eos % (Auto) 0 Baso % (Auto) 0 Neut # (Auto) 15.2 H Lymph # (Auto) 0.5 L [place] # (Auto) 1.4 H Eos # (Auto) 0.0 Baso # (Auto) 0.0 Immature Gran # (Auto) 0.15 H Absolute Nucleated RBC 0.00 Immature Gran % 1 H Nucleated RBC % 0 Chlam trachomat DNA PCR Negative N.gonorrhoeae DNA (PCR) Negative Trichomonas DNA Probe Negative Blood Type A Positive Antibody Screen NEGATIVE Crossmatch See Detail Blood Bank Wristband ID Yes Blood Bank Comment FFP Ready 07/21/25 04:10 WBC 23.6 H D RBC 2.28 L Hgb 7.0 L D Hct 20.7 L* MCV 91 MCH 30.7 MCHC 33.8 RDW Std Deviation 43.4 Plt Count 179 Neut % (Auto) 83 H Lymph % (Auto) 5 L [place] % (Auto) 10 Eos % (Auto) 0 Baso % (Auto) 0 Neut # (Auto) 19.7 H Lymph # (Auto) 1.3 [place] # (Auto) 2.4 H Eos # (Auto) 0.0 Baso # (Auto) 0.1 Immature Gran # (Auto) 0.27 H Absolute Nucleated RBC 0.00 Immature Gran % 1 H Nucleated RBC % 0 Chlam trachomat DNA PCR N.gonorrhoeae DNA (PCR) Trichomonas DNA Probe Blood Type Antibody Screen Crossmatch Blood Bank Wristband ID Blood Bank Comment Assessment & Plan Problem List (1) Active labor at term: Status: Acute (2) Diet controlled gestational diabetes mellitus (GDM) in third trimester: Status: Acute (3) Vacuum-assisted vaginal delivery: Status: Acute (4) Perineal laceration complicating delivery: Status: Acute Assessment Comment Assessment comment: Plan monitor bleeding CBC as directed after blood transfusion and in am Plan Comment Plan Comment: vaginal packing was removed today Time Spent With Patient Time: Total time spent is greater than 50% in coordination of care (as documented) at patient's floor/unit and/or counseling patient:
[2025-07-22 00:55] LABS: Basophils # (Auto) 0.1 Thou/mm3 (0.0-0.2); Basophils % (Auto) 0 % (0-2.5); Eosinophils # (Auto) 0.1 Thou/mm3 (0.0-0.5); Eosinophils % (Auto) 0 % (0-10); Hematocrit 25.6 % (36.0-46.0); Hemoglobin 8.9 g/dL (12.0-16.0); Immature Granulocytes Auto 0.45 Thou/mm3 (0.00-0.00); Lymphocytes # (Auto) 1.6 Thou/mm3 (1.0-4.8); Lymphocytes % (Auto) 10 % (10-50); Mean Corpuscular HGB Conc 34.8 g/dl (31.0-37.0); Mean Corpuscular Hemoglobin 30.7 pg (25.0-35.0); Mean Corpuscular Volume 88 fL (80-100); Monocytes # (Auto) 1.5 Thou/mm3 (0.0-0.8); Monocytes % (Auto) 9 % (0-12); Neutrophils # (Auto) 12.7 Thou/mm3 (1.8-7.7); Neutrophils % (Auto) 78 % (37-80); Nucleated Red Blood Cell # 0.00 Thou/mm3 (0.00-0.00); Nucleated Red Blood Cell % 0 /100 WBC (0); Platelet Count 140 Thou/mm3 (140-440); RDW Standard Deviation 46.6 fL (36.4-46.3); Red Blood Count 2.90 Miln/mm3 (4.00-5.20); White Blood Count 16.4 Thou/mm3 (3.6-11.0)
[2025-07-22] MEDS: IBUPROFEN TAB 400 MG TABLET 800 MG PO ×2 (03:53→12:03)
[2025-07-22 04:00] VITALS: BP 96/59; PULSE 75; RESP 20; TEMP 36.7; O2SAT 99
--- NOTE | 2025-07-22 07:39 | PD.LDPPPRG ---
Subjective Subjective Interval history: Delivery type: Vacuum-assisted vaginal delivery with extensive laceration and hemorrhage requiring blood transfusion Patient doing well this morning. No acute complaints. Ambulating, tolerating p.o., and voiding without difficulty. HTN/Pre-E screen negative: No CP, SOB, CHU, visual changes, RUQ pain. : Yes Lochia: diminishing Bowel: Flatus + / BM + UOP: Voiding Exam Vital Signs Temp Pulse Resp BP Pulse Ox O2 Del Method 98.0 F 75 20 96/59 L 99 Room Air 07/22/25 04:00 07/22/25 04:00 07/22/25 04:00 07/22/25 04:00 07/22/25 04:00 07/22/25 04:00 Constitutional Constitutional: no acute distress Routine HEENT Exam Head: Present normocephalic and atraumatic Eye: Present EOMI and PERRL ENT: Present mucous membranes moist Routine Neck Exam Neck: Present supple and trachea midline Routine Respiratory Exam Respiratory: Present chest non-tender, lungs clear, normal breath sounds and no resp distress Routine Cardiovascular Exam Cardiovascular: Present RRR Routine Abdominal Exam Abdominal: Present soft and normoactive bowel sounds Routine Extremities Exam Extremities: Present full ROM Routine Skin Exam Skin: Present intact, dry and warm Routine Neurological Exam Neurological: Present alert, oriented X3 and CN II-XII intact Routine Psychiatric Exam Psychiatric: Present normal affect and normal thought process Objective Labs 07/22/25 00:27 Labs: Laboratory Results - last 24 hr 07/20/25 07/22/25 02:45 00:27 WBC 16.4 H D RBC 2.90 L Hgb 8.9 L D Hct 25.6 L MCV 88 MCH 30.7 MCHC 34.8 RDW Std Deviation 46.6 H Plt Count 140 D Neut % (Auto) 78 Lymph % (Auto) 10 [place] % (Auto) 9 Eos % (Auto) 0 Baso % (Auto) 0 Neut # (Auto) 12.7 H Lymph # (Auto) 1.6 [place] # (Auto) 1.5 H Eos # (Auto) 0.1 Baso # (Auto) 0.1 Immature Gran # (Auto) 0.45 H Absolute Nucleated RBC 0.00 Immature Gran % 3 H Nucleated RBC % 0 Blood Type A Positive Antibody Screen NEGATIVE Crossmatch See Detail Blood Bank Wristband ID Yes Blood Bank Comment FFP Ready Assessment & Plan Problem List (1) Active labor at term: Status: Acute (2) Diet controlled gestational diabetes mellitus (GDM) in third trimester: Status: Acute (3) Vacuum-assisted vaginal delivery: Status: Acute Assessment and plan: PPD/POD#2 1. Continue routine care 2. Transition to PO meds. 3. Encourage to ambulate/ breast-feed 4. Anticipate discharge home today. (4) Perineal laceration complicating delivery: Status: Acute Time Spent With Patient Time: Total time spent is greater than 50% in coordination of care (as documented) at patient's floor/unit and/or counseling patient:
--- NOTE | 2025-07-22 07:48 | ESDS_ITS ---
DS: Providers Provider Date of admission: 07/20/25 02:19 Primary care physician: Physician No Primary/Family Admitting Provider: Sharyn Smart MD Attending Provider on Admission: Navarro Valle MD Consults: 07/20/25 20:07 Referral Routine Comment: Attending Provider on DC: Navarro Valle MD Discharging Provider: Navarro Valle MD DS: Diagnosis Discharge Diagnosis (1) Perineal laceration complicating delivery: Status: Acute (2) Vacuum-assisted vaginal delivery: Status: Acute Problem List Completed Was Problem List Reviewed/Reconciled?: Yes Summary/Hosp Course Brief History: Patient doing well this morning. Last exam was 6 cm with 100% effacement and 0 station. Due to multiple medical problems patient is not able to tolerate left lateral position. Occasional category 2 heart rate tracing resolved to category 1 after IV D5 bolus Assessment and plan Continue current management, oxytocin after tracing results. Anticipate vaginal delivery Peripartum Data Delivery Method: Normal Vaginal Delivery Episiotomy Description: Right Mediolateral Time Spent with Patient Time attestation: Total time spent providing and/or coordinating discharge services: Exam Vital Signs Temp Pulse Resp BP Pulse Ox O2 Del Method 98.0 F 75 20 96/59 L 99 Room Air 07/22/25 04:00 07/22/25 04:00 07/22/25 04:00 07/22/25 04:00 07/22/25 04:00 07/22/25 04:00 Discharge Plan Plan Patient Disposition: HOME (Self Care) Patient condition on transfer: Stable Prescriptions/Referrals Prescriptions/Med Rec: New docusate sodium [Stool Softener] 100 mg capsule 100 mg PO QDAY 30 Days Qty: 30 0RF ibuprofen 600 mg tablet 600 mg PO Q6H MDD 4 PRN (Reason: fever or pain) 10 Days Qty: 40 0RF Continued (DME) blood-glucose meter Kit See Rx Instructions .MEDSUPPLY Qty: 1 0RF Rx Instructions: As directed test 4 x daily (DME) lancets Misc See Rx Instructions .MEDSUPPLY Qty: 100 1RF Rx Instructions: As directed test 4 time daily (DME) Blood Glucose Test Strip See Rx Instructions .MEDSUPPLY Qty: 10 0RF Rx Instructions: As directed acyclovir 400 mg tablet 400 mg PO TID Qty: 21 0RF (DME) Blood Glucose Test Strip See Rx Instructions .MEDSUPPLY Qty: 50 3RF Rx Instructions: As directed test 4 time daily (DME) lancets Misc See Rx Instructions .MEDSUPPLY Qty: 100 3RF Rx Instructions: As directed test 4 time daily (DME) blood-glucose meter Kit See Rx Instructions .MEDSUPPLY Qty: 1 0RF Rx Instructions: As directed test 4 x daily Classic 28 mg iron- 800 mcg tablet 1 tab PO .QD Qty: 90 3RF Referrals: No Primary/Family,Physician [Primary Care Provider] Navarro Valle MD [Physician, [employer]] Patient/Caregiver Discharge Instructions Discharge Activity: activity as tolerated Education Materials: After a Vaginal , Perineum Care After Childbirth, Depression, Understanding Depression Print Language: Vietnamese Stand Alone Forms: Meli Award Info., Patient Portal Info Letter Planned Discharge Date 07/22/25
[2025-07-22 08:00] VITALS: BP 107/61; PULSE 81; RESP 18; TEMP 36.7; O2SAT 98
[2025-07-22 11:54] LABS: Basophils # (Auto) 0.1 Thou/mm3 (0.0-0.2); Basophils % (Auto) 0 % (0-2.5); Eosinophils # (Auto) 0.1 Thou/mm3 (0.0-0.5); Eosinophils % (Auto) 1 % (0-10); Hematocrit 24.8 % (36.0-46.0); Immature Granulocytes Auto 0.62 Thou/mm3 (0.00-0.00); Lymphocytes # (Auto) 1.6 Thou/mm3 (1.0-4.8); Lymphocytes % (Auto) 9 % (10-50); Mean Corpuscular HGB Conc 33.5 g/dl (31.0-37.0); Mean Corpuscular Hemoglobin 30.0 pg (25.0-35.0); Mean Corpuscular Volume 90 fL (80-100); Monocytes # (Auto) 1.5 Thou/mm3 (0.0-0.8); Monocytes % (Auto) 9 % (0-12); Neutrophils # (Auto) 13.1 Thou/mm3 (1.8-7.7); Neutrophils % (Auto) 78 % (37-80); Nucleated Red Blood Cell # 0.02 Thou/mm3 (0.00-0.00); Nucleated Red Blood Cell % 0 /100 WBC (0); Platelet Count 153 Thou/mm3 (140-440); RDW Standard Deviation 47.7 fL (36.4-46.3); Red Blood Count 2.77 Miln/mm3 (4.00-5.20); White Blood Count 16.9 Thou/mm3 (3.6-11.0)
[2025-07-22 12:00] VITALS: BP 109/67; PULSE 77; RESP 17; TEMP 36.8; O2SAT 99
[2025-07-22 12:10] LABS: Hemoglobin 8.3 g/dL (12.0-16.0)
[2025-07-22 16:00] VITALS: BP 110/71; PULSE 71; RESP 18; TEMP 36.8; O2SAT 98
== END 2025-07-22 18:22 | disposition home or self-care (01) | DRG 806 ==
LOC: S4SX 18:01 → S4NX 20:01
PROVIDERS: Obstetrics & Gynecology; Admitting Provider Obstetrics & Gynecology; Visit Provider Obstetrics & Gynecology
DX: O24.420 Gestational diabetes mellitus in childbirth, diet controlled (principal); O71.4 Obstetric high vaginal laceration alone; Z37.0 Single live birth; O72.1 Other immediate postpartum hemorrhage; Z3A.39 39 weeks gestation of pregnancy; O76 Abnormality in fetal heart rate and rhythm complicating labor and delivery; O66.5 Attempted application of vacuum extractor and forceps
CPT/HCPCS: 36415; 59025; 76815; 84112; 85025; 86780; 86850; 86900; 86901; 86923; 86927; 87491; 87591; 87661; J2405; J2590; J2795; J3010; J3490; J7042; J7120; P9016; P9060; A9270

== ENCOUNTER 2025-08-15 09:38 | Outpatient (AMB) | payer OTHER, SELFPAY ==
--- NOTE | 2025-08-15 09:48 | AMBOBPPN_ITS ---
Vital Signs 08/15/25 09:53 Weight 57.833 kg Weight Measurement Method Standing Scale BP 107/72 Blood Pressure Source Automatic Cuff Blood Pressure Location Left Upper Arm Position Sitting Respiration 18 Pulse 76 Pulse Source Monitor Temp 97.2 F Temp Source Oral Pulse Oximetry (%) 98 Oxygen Delivery Method Room Air Allergies/Home Meds Allergies & Medications Allergies shrimp Allergy (Severe, Verified 08/15/25 09:55) Anaphylaxis Medication Reconciliation acyclovir 400 mg tablet 400 mg PO TID #21 tabs 04/15/25 [Rx Confirmed 08/15/25] vits no.126-ferrous fum 28 mg iron-folic acid 800 mcg tablet (Classic ) 1 tab PO .QD #90 tabs 04/17/25 [Rx Confirmed 08/15/25] blood sugar diagnostic (Blood Glucose Test strips) #50 ea 06/07/25 [Rx Confirmed 08/15/25] blood-glucose meter #1 ea 06/07/25 [Rx Confirmed 08/15/25] lancets #100 ea 06/07/25 [Rx Confirmed 08/15/25] blood sugar diagnostic (Blood Glucose Test strips) #10 ea 07/05/25 [Rx Confirmed 08/15/25] blood-glucose meter #1 ea 07/05/25 [Rx Confirmed 08/15/25] lancets #100 ea 07/05/25 [Rx Confirmed 08/15/25] docusate sodium 100 mg capsule (Stool Softener) 100 mg PO QDAY 30 days #30 caps 07/22/25 [Rx Confirmed 08/15/25] metronidazole 500 mg tablet 500 mg PO BID 7 days #14 tabs 08/15/25 [Rx] Intake Visit Data Collection New Patient or Established: Established Patient (seen at [facility] within 3 years) Reason for Visit:: Seen by Clinical Staff ONLY (RN/MA): No 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 Golf 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 Required: No Do You Feel Safe at Home: Yes Authorities Contacted: N/A PCP or OBGYN visit in last 3 months: Yes Date of Last PCP or OBGYN visit: 07/22/25 Hx Now: No Are you currently on any form of Control: No Pain Present Currently: No Pain Scale Used: Mccoy-Burgos/Numerical Pain scale:: 0 Smoking Status Smoking Status: Never smoker Immunizations Flu Vaccine in the Last 12 Months: No Flu Vaccine Exclusion Criteria: Refused by Patient 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: Past Medical History Past Medical History: No Hx Neurological Disorders, No Hx Hypothyroidism, No Hx Hyperthyroidism, No Hx Breast Cancer, No Hx Cardiac Disorders, Yes Hx Cancer, No Hx Blood Disorders, No Hx Anemia, Yes Hx Gastrointestinal Disorders, No Hx Renal Disease, No Hx Diabetes Mellitus Type 1, No Hx Diabetes Mellitus Type 2 and No Psychiatric Problems Questionnaires Covid-19 Vaccine Questionnaire Has patient been vacinated for Covid-19 Have you been vacinated for Covid-19: No Social History Living Situation History Marital Status: Lives With: Family Housing: House Housing Other:: 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 Tobacco History Smoking Status: Never smoker Second Hand Smoke Exposure: No Alcohol History Alcohol Intake: Never Domestic Abuse History Do You Feel Safe at Home: Yes EPDS - PP Depression Screening [place] Pospartum Depression Screen I have been able to laugh and see the funny side of things: (0) As much as I always could I have looked forward with enjoyment to things: (0) As much as I ever did I have blamed myself unnecessarily when things went wrong: (0) No, never I have been anxious or worried for no good reason: (0) No, not at all I have felt scared or panicky for no very good reason: (0) No, not at all Things have been getting on top of me: (0) No, I have been coping as well as ever I have been so unhappy that I have had difficulty sleeping: (0) No, not at all I have felt sad or miserable: (0) No, not at all I have been so unhappy that I have been crying: (0) No, never The thought of harming myself has occurred to me: (0) Never Total Score: EPDS Score: Referral is indicated for score of 9 or more, suicidal, or if provider believes patient is depressed regardless of score.: 0 EPDS completed yes Care OB Visit Log OB Flowsheet Initial Weight: Not Recorded Date -?-?-?-?-?-?-?-?-?-?-?-?- EGA Weight BP Alb Glu CTX Pres Fundal ht FHR Mov Dilation Station Effacement Hx Notes Visit Note 01/29/25 -?-?-?-?-?-?-?-?-?-?-?-?- 14w 5d 54.431 kg 114/78 15 140 No vaginal bleeding no cramping. Patient still nauseous willing to try medication. 03/02/25 -?-?-?-?-?-?-?-?-?-?-?-?- 19w 2d 56.869 kg 106/71 20 135 active No VB or scrap sorter mping. NIPT WNL. Order SS. No labs back 03/26/25 -?-?-?-?-?-?-?-?-?-?-?-?- 22w 5d 59.024 kg 99/64 absent 23 156 act james +FM no UCs or VB Ordered US from [facility] Pt states she faints with pain and has passed out in the shower with cramps from her cycles 04/11/25 -?-?-?-?-?-?-?-?-?-?-?-?- 25w 0d 61.235 kg 102/67 absent 26 154 active +FM No UCs or VB Multiple complaints and concerns addressed 05/07/25 -?-?-?-?-?-?-?-?-?-?-?-?- 28w 5d 62.709 kg 100/64 absent 29 156 ac tive Good movement no contractions no vaginal bleeding Order glucose challenge test. Order CBC and RPR. 05/21/25 -?-?-?-?-?-?-?-?-?-?-?-?- 30w 5d 62.823 kg 108/69 absent 32 145 ac tive Good movement no contractions no loss of fluids F cindy 1 hour glucose. 189. Order 3-hour glucose 06/07/25 -?-?-?-?-?-?-?-?-?-?-?-?- 33w 1d 64.58 kg 102/68 absent cephalic 33 145 active Good movement. Denies contractions. Denies leaking or bleeding. Patient has questions about labor and . Abnormal 3- hour GTT. I ordered glucometer, lancets and test strips. Discussed GDM diet with patient. I discussed how to log sugars and parameters. Kick count twice a day. Schedule NST weekly as urgent. Patient has a follow-up ultrasound at OB this week. Return in 2 weeks OB check 06/21/25 -?-?-?-?-?-?-?-?-?-?-?-?- 35w 1d 64.524 kg 104/70 absent cephalic 35 145 active Patient reports she has not been checking her sugars as directed because insurance did not cover her GDM supplies. Reports movement. Needs help with disability. And patient has no OB complaints. Denies leaking, bleeding, contractions and she reports movement. Disability will start today GBS today. Discussed kick count twice a day. Discussed labor precautions. We reviewed GDM diet and compliance. Walk 40 minutes a day and 10 minutes after each meal. I reordered her diabetic supplies to [employer] to see if that would help. We discussed the importance of logging her blood sugars. Return in a week OB check 07/05/25 -?-?-?-?-?-?-?-?-?-?-?-?- 37w 1d 66.905 kg 103/70 absent cephalic 37 145 active Patient denies induction of labor for GDM. Patient is compliant with weekly NST BPP. And she has been trying to complete a diet. Patient is not testing her blood sugars. She did not get her test kit. Reports good movement. Denies leaking, bleeding or contractions Patient denies induction of labor for GDM. Patient is compliant with weekly NST BPP. And she has been trying to complete a diet. Patient is not testing her blood sugars. She did not get her test kit. Reports good movement. Denies leaking, bleeding or contractions. Patient denies induction of labor for GDM. Patient is compliant with weekly NST BPP. And she has been trying to complete a diet. Patient is not testing her blood sugars. She did not get her test kit. Reports good movement. De nies leaking, bleeding or contractions. Patient denies any complaints of herpetic lesions. And she has been taking acyclovir. I reordered glucometer, lancets, test strips to [facility]. Discussed checking 4 times a day and logging them. I discussed parameters. Discussed labor precautions. Kick count. Continue weekly NST BPP. And we discussed induction and how to go forward. Discussed danger signs symptoms and ER precautions and we discussed complications of GDM return a week or return I reordered glucometer, lanc ets, test strips to [facility]. Discussed checking 4 times a day and logging them. I discussed parameters. Discussed labor precautions. Kick count. Continue weekly NST BPP. And we discussed induction and how to go forward. Discussed danger signs symptoms and ER precautions and we discussed complications of GDM return a week or return, A1c 07/17/25 -?-?-?-?-?-?-?-?-?-?-?-?- 38w 6d 67.812 kg 114/73 absent cephalic 39 145 active Declined pelvic exam today. Patient had NST BPP that was reactive with normal DEANNE today. Occasional contraction and pressure. And reports good movement IOL 07/26/25 IOL 07/26/25, patient did no t want to be induced at 39 weeks. She reports that when she checks her blood sugars did not are normal, even in on the lower side in the 90s. But she agrees to think about being induced at term. Repeat kick count twice a day was reviewed. We discussed GDM diet and testing. 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 GC/CT-, RPR::NR, rub imm, hbsag-,hc-,hiv-, A+,ABS- Visit Date: 05/21/25 Last Updated by: Abbey Wu ([facility])MD Patient with back pain suspected sciatic. Requesting off work in 1 month. Patient will stop work June 15. Discussed labor in depth with the patient and her . She does desire trial of labor and not a primary scheduled C- section. Patient states she passes out with pain I recommend an early epidural. She does have a history of a LEEP we might have to stretch her if cervical scarring is present. Visit Date: 05/07/25 Last Updated by: Abbey Wu ([facility])MD Left leg more swollen than the right. Suspect varicosity Visit Date: 04/11/25 Last Updated by: Abbey Wu ([facility])MD Pt presents with FOB with multiple complaints: swelling in her feet and hands, early carpal tunnel-like pain on and off in the mornings. A spider or mosquito bite on one lower leg, a cold sore on her lip. She is very anxious and again discussed that sometimes she would faint from menstrual cramps in the past. Her BP is 102/67 but she said her family has taken it at home and she has a picture on her phone of a BP around 98/56. No CHU, No SOB or chest pain. 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 Reassurance given about low BP and told it is because she is young and healthy and that BP often drops a little in the second trimester. Offered acyclovir for cold sore and reminded pt not to touch the area a lot as it can spread to other areas. If pt has vaginal herpes, she needs to call immediately and she will be treated and started on suppression at 36 weeks. I suggested no one take her BP unless she does not feel well. I told her low sodium might help her swelling but will not increase her BP. Visit Date: 03/26/25 Last Updated by: Abbey Wu ([facility])MD Labs from [facility] 01/01/25: A+/ab screen -/RI/RPR NR/ HIV-/HepBSag-/HgB 11.8 No Urine Cx or GC/Chlamydia NIPT 46 XY Visit Date: 03/02/25 Last Updated by: Abbey Wu ([facility])MD Pt doing well. Need all PNC labs on chart as none available. NIPT 46 XX Visit Date: 01/29/25 Last Updated by: Abbey Wu ([facility])MD No labs to review. Patient states NIPT is not covered. HPI Interval History: 35-year-old 1 para 1 for three 3-week . Patient had a vaginal July 20, 2025. A baby girl weighing 7 pounds 15 ounces it was a vacuum delivery. Mediolateral episiotomy. Baby girl weighing 7 pounds 15 ounces. Patient is bottle and pumping. She was tearful feels overwhelmed. She still has increased complaints of perineal pain. She was treated prophylactically with antibiotics at delivery. She is using some comfort measures for the pain with no help. Patient pumps sporadically. And is only getting about 3 ounces when she pumps. She did see the retail consultant. 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 The father the baby is supportive. She has family support. But she is not sleeping much as well. GDM diet Was or delivery considered high risk: No Delivery type: vaginal Was labor induced: no (augmented) Gestational age at delivery (weeks): 39.1 Delivery date: 07/20/25 Delivering provider: misti/ vaccum Delivery complications: No Is patient infant: Yes Is patient sexually active: Yes Contraception planned: unsure Review of Systems Review of Systems ROS limited to current 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 complaints: Yes Exam Narrative Physical exam: Normal heart rate and rhythm. Lungs clear no wheezes. Abdomen is soft nontender. Uterus well involuted. Perineum is intact no lacerations. No swelling. Small lochia. Negative Homans' sign. 2+ DTRs. No edema no swelling. Breasts are soft. Vagina red and swollen. Grayish-yellow discharge with foul odor. Tender to touch. Medial lateral laceration was well- approximated Office Procedures [facility] LOC & Office Proc's Nursing/Assessment Patient Status: Established Patient [facility] Clinic Nursing Assessment: Medication Reconciliation, Update PMH in EMR and Vital Signs OB Clinic Coordination of Care: Complex Care and Chronic Disease 1-5, Consent,records obtained, informed consent, Education Simp Pt/Fam, Lab and Imaging orders, Results/Orders obtained and Staff clarify orders Established Patient Charge Established Patient Point Assignment: 105 Established Patient Point Charge: EP Level 3 (80-115) Assessment & Plan Diagnosis / Problem List (1) 2 weeks follow-up: Status: Acute (2) Vaginitis: Status: Acute Qualifiers: Chronicity: acute Qualified Code(s): N76.0 - Acute vaginitis Plan Discussed with patient trying sitz bath's. And improved perineal care. Tylenol for discomfort. She can continue Colace. She completed antibiotics. I did a NuSwab plus and Flagyl 500 p.o. twice daily. I discussed ways to help patient maybe get some more rest such as asking for help of family and discussed methods to help improve milk flow. Patient will come back in 3 weeks for 3-week follow-up and 2-hour gtt. She is going to follow-up for her abnormal Pap with [facility] primary care. And will evaluate for depression again next visit Care Reviewed delivery summary and any complications: Yes Uterus involuted to: 3 below Perineal / incision healing noted: Yes Screened for depression: Yes Depression counseling provided: No Discussed family planning & contraception: Yes Contraception planned: unsure Counseling on safe resumption of sexual activity: Yes Counseling on gradual excercise: Yes Discussed and concerns (describe), provided support: Yes Referred to graphics specialist: Yes Counseled on good nutrition, hydration, and self care: Yes Reviewed vaccine status: No Chronic & current problems reconciled on problem list: Yes Infant care discussed; questions answered: feeding Follow up: routine/prn Additional counseling & anticipatory guidance provided: Discussed sitz bath's with Epsom salt. And comfort measures for perineal tear. Flagyl 500 p.o. twice daily. And NuSwab. Return for 3-week follow-up and 2- hour GTT
[2025-08-15 09:53] VITALS: BP 107/72; PULSE 76; RESP 18; TEMP 36.2; O2SAT 98
== END 2025-08-15 10:36 | disposition home or self-care (01) ==
LOC: HODSOBC 09:38
PROVIDERS: Supervising Provider Advanced Practice Midwife; Visit Provider Advanced Practice Midwife
DX: Z39.2 Encounter for routine postpartum follow-up (principal); O86.13 Vaginitis following delivery; Z39.1 Encounter for care and examination of lactating mother; Z91.013 Allergy to seafood
CPT/HCPCS: 99213; G0463